=== PATIENT | male | born 1945 | race Caucasian/White ===

== ENCOUNTER → 2016-07-24 | Outpatient (CLI) | payer MEDICARE ==
[2015-03-13 11:06] VITALS: BP 114/71
[~2016-07-24] MED LIST: 0.9126SP NS; ACET325T9 PO; BUSP10TA PO; FURO-68 PO; FURO40TA4 PO; GABA-586 PO; GABA-587 PO; GABA600T2 PO; GUAI473L15 PO; HYDR28OI6 TP; IOHEXOL 300 MG/ML 75 ML VIAL. IV ONE; KEPPRA 100 MG/ML PO; LACO150T PO; LACO50TA PO; LEVO500T59 PO; LEVO75TA5 PO; MAGN400T3 PO; MENT1LOZ3 MM; METH-39 PO; NYST1000 PO; OXYC10TA PO; OXYC5CAP PO; OXYC5TAB PO; PANT40TA3 PO; PANT40TA5 PO; POTA40LI3 PO; POTA40LI4 PO; QUET25TA5 PO; SALI45SP MM; SUCR1TAB PO; VENL75CA PO; WARF4TAB7 PO
--- NOTE | 2016-07-24 12:16 | RAD ---
Exam performed: CT abdomen pelvis with contrast. History: Abnormal weight loss. Date of service: 07/24/16. Comparison: None available Technique: Contiguous helical acquisitions are obtained through the abdomen and pelvis during intravenous administration of 75 cc of Omnipaque 300. Sagittal and coronal reformatted images are obtained and reviewed. Findings: Lung bases are essentially clear. Visualized heart is normal. The liver, gallbladder, spleen and pancreas appear grossly normal. Tiny cyst in the subdiaphragmatic right hepatic lobe. Both adrenal glands and bilateral kidneys are normal in size with symmetric excretion of contrast via both kidneys. There is no hydronephrosis or nephrolithiasis. Ectatic tortuous aorta with mild aneurysmal dilatation diffuse and atheromatous calcification. Aorta measures up to 3.2 cm in maximum dimension. The small and large bowel loops are nondilated and unremarkable. Scattered stool in the colon. Appendix is not clearly seen. No inflammatory changes in the right lower quadrant. There is a large abdominal wall defect in the left posterior lateral aspect Sigmoid diverticulosis with apparent wall thickening of a long segment of sigmoid colon . A tiny 6 mm fatty attenuating nodule with microcalcification is redemonstrated. Urinary bladder is partially decompressed however normal. Prostate gland demonstrates mild calcification, seminal vesicles and rectum appear normal. No free or focal fluid collections are identified. Interrogation of bone windows demonstrates no acute bony abnormality, spondylotic changes are noted. There are extensive postoperative changes involving the thoracolumbar spine. Impression: 1. No acute intra-abdominal or pelvic process detected. 2. Diffuse colonic diverticulosis without acute diverticulitis. 3. Small infrarenal abdominal aortic aneurysm. 4. Abdominal wall defect in the left posterior lateral aspect appears similar without herniation of bowel loops. PQRS Compliance Statement: One or more of the following individualized dose reduction techniques were utilized for this examination: 1. Automated exposure control 2. Adjustment of the mA and/or kV according to patient size 3. Use of iterative reconstruction technique
== END | disposition home or self-care (01) ==
LOC: CT 10:15
PROVIDERS: ATTEND Specialist
DX: K57.30 Diverticulosis of large intestine without perforation or abscess without bleeding (principal); I71.4 Abdominal aortic aneurysm, without rupture; R63.4 Abnormal weight loss
CPT/HCPCS: 74177; Q9967

== ENCOUNTER 2016-10-10 20:01 | Emergency (ER) | payer MEDICARE ==
[~2016-10-10 20:01] MED LIST changes: -IOHEXOL 300 MG/ML 75 ML VIAL. IV ONE
[2016-10-10 22:33] LABS: BASO % 1 % (0-3); EOS % 1 % (0-3); HEMATOCRIT 35.8 % (39.0-53.0); LYMPH # 1.3 x10^3/uL (1.0-4.8); LYMPH % 21 % (24-48); MEAN CORPUSCULAR HEMOGLOBIN 31 pg (25-35); MEAN CORPUSCULAR HGB CONC 34 g/dL (31-37); MEAN CORPUSCULAR VOLUME 91 fL (79-100); MONO # 0.6 x10^3/uL (0.0-1.1); MONO % 10 % (0-9); NEUT # 4.1 x10^3uL (1.8-7.7); NEUT % 68 % (31-73); PLATELET COUNT 203 x10^3/uL (140-400); RED BLOOD COUNT 3.93 x10^6/uL (4.30-5.70); RED CELL DISTRIBUTION WIDTH 14.2 % (11.5-14.5)
[2016-10-10 22:43] LABS: BACTERIA,URINE 0 /HPF (0-FEW); BILIRUBIN,URINE NEG (NEG); CLARITY,URINE CLEAR; COLOR,URINE YELLOW; GLUCOSE,URINE NEG (NEG); NITRITE,URINE POS (NEG); RBC,URINE OCC /HPF (0-2); SQUAMOUS EPITHELIAL CELL,UR FEW /LPF; UROBILINOGEN,URINE 0.2 mg/dL (0.2 mg/dL)
[2016-10-10 22:44] LABS: ALBUMIN/GLOBULIN RATIO 0.8 (1.0-1.7); CALCIUM 8.1 mg/dL (8.5-10.1); CREATININE 0.8 mg/dL (0.7-1.3); GFR 95.3; POTASSIUM 4.2 mmol/L (3.5-5.1); TOTAL BILIRUBIN 0.3 mg/dL (0.2-1.0); TOTAL PROTEIN 6.7 g/dL (6.4-8.2)
[2016-10-10 22:48] LABS: BGAS PH 7.43 (7.35-7.46)
--- NOTE | 2016-10-10 23:26 | EKG ---
[address] [address] Test Date: 2016-10-10 Test Time: 21:26:57 Pat Name: EBER MACHADO Department: Room: Gender: M [employer] Fab[employer] Supervisor: : 1945 Requested By: RIAN GIMENEZ Order Number: [id number] Reading MD: Jevon Parrish Measurements Intervals [place] Rate: 56 P: 37 WI: 264 QRS: 36 QRSD: 82 T: 36 QT: 386 QTc: 375 Interpretive Statements SINUS RHYTHM PROLONGED WI INTERVAL Electronically Signed On 10-11-2016 8:40:25 CDT by Jevon Parrish
--- NOTE | 2016-10-11 00:01 | RAD ---
EXAM: CT HEAD WITHOUT CONTRAST. HISTORY: Altered mental status. TECHNIQUE: Computed tomography of the head was performed without intravenous contrast. COMPARISON: None. FINDINGS: There is no intracranial hemorrhage. Hypoattenuation within the periventricular white matter indicates mild chronic microangiopathic change. There is 6 mm rightward midline shift. The extra-axial space on the left is mildly prominent, but there is no clear collection or space-occupying lesion. Prominence of the lateral ventricles and hemispheric sulci indicates moderate atrophy. The visualized portion of the left maxillary sinus is opacified. There are changes of right maxillary sinus decompressive surgery. The turbinates have been resected. There is mild mucosal thickening elsewhere throughout the sinuses. There are changes of bilateral cataract surgery. The temporal bones are unremarkable. The calvarium reveals no suspicious lesions. IMPRESSION: 1. No acute intracranial findings. 2. Rightward midline shift measures 6 mm, but there is no clear space-occupying lesion or extra-axial collection. Prominence of the left extra-axial space may reflect atrophy or a small chronic subdural hygroma. Comparison with prior studies could assess chronicity. 3. Moderate atrophy. Mild chronic microangiopathic white matter change. *One or more of the following individualized dose reduction techniques were utilized for this examination: 1. Automated exposure control. 2. Adjustment of the mA and/or kV according to patient size. 3. Use of iterative reconstruction technique. Electronically signed by: Neville Rosales MD (10/10/2016 11:58 PM) [facility]
[2016-10-11 00:30] VITALS: BP 141/77
--- NOTE | 2016-10-11 05:40 | ED.ADGEN ---
Past History Past Medical History: GERD, Hypothyroid, Other Past Surgical History: Other Alcohol Use: None Drug Use: None Adult General Chief Complaint Chief Complaint Altered mental status [facility] HPI Patient is a 71-year-old male brought to the emergency department with change of mental status. Patient was last known normal was approximately 5 PM this evening. Patient's sister spoke with the patient on phone at the time and then visited him 90 minutes later. The patient was found mildly confused and appeared to be somewhat somnolent. Symptoms improved prior to ED arrival. Patient reports chronic back pain and took 1 oxycodone prior to ED arrival. He did not take any additional medications than prescribed prior to the onset of symptoms. Patient is not diabetic he denies history of hypoglycemia or seizure disorder. Prior to symptoms started, patient started bowel prep for scheduled colonoscopy tomorrow. She denies headache, change in vision, chest pain, palpitations, dizziness, lightheadedness extremity weakness or loss of sensation. Denies fever, chills, sweats. No urinary frequency urgency, dysuria, constipation or diarrhea. No other acute symptoms or complaints. History obtained from the patient and the patient's sister who is at bedside and witnessed epsidoe. Review of Systems Review of Systems ROS as per HPI, Allergies Allergies Allergies Coded Allergies Type Severity Reaction Last Updated Verified I S O L A T I O N *CONTACT* Allergy Unknown 02/24/15 Yes NKMA Allergy Unknown 02/24/15 Yes Physical Exam Physical Exam Constitutional: Well developed, well nourished, no acute distress, non-toxic appearance. HENT: Normocephalic, atraumatic, bilateral external ears normal, oropharynx moist, no oral exudates, nose normal. Eyes: PERRLA, EOMI, conjunctiva normal. Neck: Normal range of motion, no tenderness. Cardiovascular:Heart rate regular rhythm, no murmur. Lungs & Thorax: Bilateral breath sounds clear to auscultation. Abdomen: Bowel sounds normal, soft, no tenderness. Skin: Warm, dry, no erythema, no rash. Back: No tenderness. Extremities: No tenderness. Neurologic: Alert and oriented X 3, normal motor function, normal sensory function, no focal deficits noted. Psychologic: Affect normal, judgement normal, mood normal. Current Patient Data Vital Signs Vital Signs Date Time Temp Pulse Resp B/P (MAP) Pulse Ox O2 Delivery O2 Flow Rate FiO2 10/11/16 00:30 97.5 57 20 141/77 (98) 96 Room Air Lab Results Laboratory Tests Test 10/10/16 21:11 10/10/16 22:15 Blood pH 7.43 (7.35-7.46) Blood Gas PCO2 38 mmHg (35-46) Blood Gas PO2 90 mmHg (71-100) Blood Gas HCO3 25 mmol/L (21-28) Arterial Bld O2 Saturation (Calc) 97 % (92-99) FiO2 21 % White Blood Count 6.0 x10^3/uL (4.0-11.0) Red Blood Count 3.93 x10^6/uL (4.30-5.70) L Hemoglobin 12.0 g/dL (13.0-17.5) L Hematocrit 35.8 % (39.0-53.0) L Mean Corpuscular Volume 91 fL (79-100) Mean Corpuscular Hemoglobin 31 pg (25-35) Mean Corpuscular Hemoglobin Concent 34 g/dL (31-37) Red Cell Distribution Width 14.2 % (11.5-14.5) Platelet Count 203 x10^3/uL (140-400) Neutrophils (%) (Auto) 68 % (31-73) Lymphocytes (%) (Auto) 21 % (24-48) L Monocytes (%) (Auto) 10 % (0-9) H Eosinophils (%) (Auto) 1 % (0-3) Basophils (%) (Auto) 1 % (0-3) Neutrophils # (Auto) 4.1 x10^3uL (1.8-7.7) Lymphocytes # (Auto) 1.3 x10^3/uL (1.0-4.8) Monocytes # (Auto) 0.6 x10^3/uL (0.0-1.1) Eosinophils # (Auto) 0.0 x10^3/uL (0.0-0.7) Basophils # (Auto) 0.0 x10^3/uL (0.0-0.2) Urine Collection Type Unknown Urine Color Yellow Urine Clarity Clear Urine pH 7.0 Urine Specific [place] 1.010 Urine Protein Neg (NEG-TRACE) Urine Glucose (UA) Neg mg/dL (NEG) Urine Ketones (Stick) Neg mg/dL (NEG) Urine Blood Neg (NEG) Urine Nitrite Pos (NEG) Urine Bilirubin Neg (NEG) Urine Urobilinogen Dipstick 0.2 mg/dL (0.2 mg/dL) Urine Leukocyte Esterase Neg (NEG) Urine RBC Occ /HPF (0-2) Urine WBC 1-4 /HPF (0-4) Urine Squamous Epithelial Cells Few /LPF Urine Bacteria 0 /HPF (0-FEW) Sodium Level 130 mmol/L (136-145) L Potassium Level 4.2 mmol/L (3.5-5.1) Chloride Level 97 mmol/L (98-107) L Carbon Dioxide Level 26 mmol/L (21-32) Anion Gap 7 (6-14) Blood Urea Nitrogen 13 mg/dL (8-26) Creatinine 0.8 mg/dL (0.7-1.3) Estimated GFR (Cockcroft-Gault) 95.3 BUN/Creatinine Ratio 16 (6-20) Glucose Level 114 mg/dL (70-99) H Calcium Level 8.1 mg/dL (8.5-10.1) L Total Bilirubin 0.3 mg/dL (0.2-1.0) Aspartate Amino Transferase (AST) 34 U/L (15-37) Alanine Aminotransferase (ALT) 33 U/L (16-63) Alkaline Phosphatase 65 U/L (46-116) Ammonia 16 mcmol/L (11-34) Total Protein 6.7 g/dL (6.4-8.2) Albumin 3.0 g/dL (3.4-5.0) L Albumin/Globulin Ratio 0.8 (1.0-1.7) L EKG EKG [EKG: Sinus bradycardia, rate 56, no acute ST-T wave changes.] Radiology/Procedures Radiology/Procedures [CT head: No acute intracranial disease] Course & Med Decision Making Course & Med Decision Making Pertinent Labs and Imaging studies reviewed. (See chart for details) [Patient with return to baseline mental status and ED confirmed by patient's sister. Etiology of symptoms is unclear. Patient noted to be mildly hyponatremic. Patient instructed to withhold GI prep and follow-up with reevaluation prior to procedure. Return precautions reviewed.] Final Impression Final Impression [1. Altered mental status, resolved] Problems: Dragon Disclaimer Dragon Disclaimer This electronic medical record was generated, in whole or in part, using a voice recognition dictation system. RIAN GIMENEZ DO Oct 11, 2016 05:40
[2016-10-12] MEDS ORDERED: VENL37.57 PO (04:26)
[2016-10-12] MEDS ORDERED: WARF2TAB7 PO (04:26)
[2016-10-12] MEDS ORDERED: OXYC5CAP PO (04:36)
[2016-10-12] MEDS ORDERED: [UNRECOGNIZED DRUG - CODE] PO (04:36)
[2016-10-12] MEDS ORDERED: TRAZ-90 PO (04:43)
[2016-10-12] MEDS ORDERED: PREG75CA PO (04:43)
[2016-10-12] MEDS ORDERED: POTA20TA84 PO (04:43)
[2016-10-12] MEDS ORDERED: LEVE750T8 PO (04:43)
== END 2016-10-11 00:30 | disposition home or self-care (01) ==
LOC: ER 20:01
DX: R41.82 Altered mental status, unspecified (principal); K21.9 Gastro-esophageal reflux disease without esophagitis; E03.9 Hypothyroidism, unspecified; G89.29 Other chronic pain; Z91.041 Radiographic dye allergy status
CPT/HCPCS: 36415; 70450; 80053; 81001; 82140; 82803; 85027; 87040; 87086; 87186; 93005; 99285-25

== ENCOUNTER 2016-10-11 21:33 | Inpatient (IN) | payer MEDICARE ==
[~2016-10-11] VITALS: Ht 188 cm; Wt 82.4 kg
--- NOTE | 2016-10-11 22:00 | PHYS DOC ---
Past History Past Medical History: GERD, Hypothyroid, Other Past Surgical History: Other Alcohol Use: None Drug Use: None Adult General Chief Complaint Chief Complaint: ALTERED MENTAL STATUS HPI HPI Patient is a 71 year old M who presents with altered mental status. Patient was seen yesterday the emergency room for similar symptoms after starting the bowel prep for colonoscopy. Patient was discharged home last night and followed up with their PCP today. Patient saw a physician administrative assistant receptionist in the office recheck some be some blood work and discharge the patient home from the office. states that the ultimate mental status tonight has gotten worse and therefore called the family physician who wanted the patient admitted to the hospital. Patient had a hard time communicating and could not articulate what brought him here to the hospital. Patient did not know his favorite TV channel. denies any fevers. denies any other neuro deficits. Review of Systems Review of Systems ROS is limited secondary to patient's clinical status Allergies Allergies Allergies Coded Allergies Type Severity Reaction Last Updated Verified I S O L A T I O N *CONTACT* Allergy Unknown 02/24/15 Yes NKMA Allergy Unknown 02/24/15 Yes Physical Exam Physical Exam GEN.: No apparent distress. Alert and oriented x2 HEENT: Head is normocephalic, atraumatic NECK: Supple. LUNGS: CTAB. HEART: RRR, S1, S2 present. Peripheral pulses intact ABDOMEN: Soft, nontender. Positive bowel sounds. EXTREMITIES: Without any cyanosis. NEUROLOGIC: Cranial nerves II through XII are grossly intact without any focal neurological deficits PSYCHIATRIC: Confused SKIN: No ulcerations Current Patient Data Lab Results Laboratory Tests Test 10/11/16 22:05 White Blood Count 8.2 x10^3/uL Red Blood Count 4.33 x10^6/uL Hemoglobin 13.1 g/dL Hematocrit 39.6 % Mean Corpuscular Volume 91 fL Mean Corpuscular Hemoglobin 30 pg Mean Corpuscular Hemoglobin Concent 33 g/dL Red Cell Distribution Width 14.4 % Platelet Count 240 x10^3/uL Neutrophils (%) (Auto) 53 % Lymphocytes (%) (Auto) 33 % Monocytes (%) (Auto) 13 % Eosinophils (%) (Auto) 1 % Basophils (%) (Auto) 1 % Neutrophils # (Auto) 4.3 x10^3uL Lymphocytes # (Auto) 2.7 x10^3/uL Monocytes # (Auto) 1.1 x10^3/uL Eosinophils # (Auto) 0.1 x10^3/uL Basophils # (Auto) 0.1 x10^3/uL Sodium Level 135 mmol/L Potassium Level 4.2 mmol/L Chloride Level 100 mmol/L Carbon Dioxide Level 30 mmol/L Anion Gap 5 Blood Urea Nitrogen 11 mg/dL Creatinine 0.7 mg/dL Estimated GFR (Cockcroft-Gault) 111.2 BUN/Creatinine Ratio 16 Glucose Level 98 mg/dL Lactic Acid Level 0.8 mmol/L Calcium Level 8.5 mg/dL Magnesium Level 2.1 mg/dL Total Bilirubin 0.4 mg/dL Aspartate Amino Transf (AST/SGOT) 27 U/L Alanine Aminotransferase (ALT/SGPT) 30 U/L Alkaline Phosphatase 78 U/L Total Protein 7.3 g/dL Albumin 3.3 g/dL Albumin/Globulin Ratio 0.8 Lipase 87 U/L Current Medications Medications (Trade) Dose Ordered Sig/[place] Route PRN Reason Start Time Stop Time Status Last Admin Dose Admin Sodium Chloride 1,000 ml @ 1,000 mls/hr 1X ONCE IV 10/11/16 22:10 10/11/16 23:09 DC 10/11/16 22:10 Ceftriaxone Sodium 1 gm/ Sodium Chloride 50 ml @ 100 mls/hr 1X ONCE IV 10/11/16 23:45 10/12/16 00:14 UNV Azithromycin 500 mg/Sodium Chloride 250 ml @ 250 mls/hr 1X ONCE IV 10/11/16 23:45 10/12/16 00:44 UNV Ondansetron HCl (Zofran) 4 mg PRN Q4HRS PRN IV NAUSEA/VOMITING 10/11/16 23:45 10/12/16 23:44 UNV Morphine Sulfate (Morphine 4mg Syringe) 4 mg PRN Q2HR PRN IV PAIN 10/11/16 23:45 10/12/16 23:44 UNV Acetaminophen (Tylenol) 650 mg PRN Q4HRS PRN PO FEVER 10/11/16 23:45 10/12/16 23:44 UNV EKG EKG 2217: EKG shows normal sinus rhythm rate of 70 no STEMI [] Radiology/Procedures Radiology/Procedures X-ray the chest shows a right middle and lower lobe infiltrate CT scan of the head NAD[] Course & Med Decision Making Course & Med Decision Making Pertinent Labs and Imaging studies reviewed. (See chart for details) ED course: Patient was seen and examined emergency room CBC, CMP, UA, CT scan of the head, EKG, chest were ordered 2326: Will will see Dr. Estrada who wants to admit to the hospitalist 2327: Discussed CC/HP/PMH with Dr. Navarrete and recommends admit MDM: After reviewing the chart, CC/HPI/PMH, physical exam, [lab results], [ radiological results], I believe the patient has altered mental status along with a newly developed right middle lobe pneumonia requiring IV antibiotics and admission to the hospital. [] Dragon Disclaimer Dragon Disclaimer This chart was dictated in whole or in part using Voice Recognition software in a busy, high-work load, and often noisy Emergency Department environment. It may contain unintended and wholly unrecognized errors or omissions. Departure Departure: Impression: Primary Impression: Right middle lobe pneumonia Additional Impression: Altered mental status Disposition: ADMITTED INPATIENT Admitting Physician: Tosin Navarrete Condition: STABLE Referrals: CIARA SCOTT MD (PCP) Problem Qualifiers ASHKAN LLOYD DO Oct 11, 2016 22:00
[2016-10-11] MEDS ORDERED: IV NORMAL SALINE 1,000ML 1,000 ML IV ONE (22:10)
[2016-10-11 22:18] LABS: BASO # 0.1 x10^3/uL (0.0-0.2); BASO % 1 % (0-3); EOS # 0.1 x10^3/uL (0.0-0.7); EOS % 1 % (0-3); HEMATOCRIT 39.6 % (39.0-53.0); HEMOGLOBIN 13.1 g/dL (13.0-17.5); LYMPH # 2.7 x10^3/uL (1.0-4.8); LYMPH % 33 % (24-48); MEAN CORPUSCULAR HEMOGLOBIN 30 pg (25-35); MEAN CORPUSCULAR HGB CONC 33 g/dL (31-37); MEAN CORPUSCULAR VOLUME 91 fL (79-100); MONO # 1.1 x10^3/uL (0.0-1.1); MONO % 13 % (0-9); NEUT # 4.3 x10^3uL (1.8-7.7); NEUT % 53 % (31-73); PLATELET COUNT 240 x10^3/uL (140-400); RED BLOOD COUNT 4.33 x10^6/uL (4.30-5.70); RED CELL DISTRIBUTION WIDTH 14.4 % (11.5-14.5); WHITE BLOOD COUNT 8.2 x10^3/uL (4.0-11.0)
--- NOTE | 2016-10-11 22:19 | EKG ---
[address] [address] Test Date: 2016-10-11 Test Time: 22:12:07 Pat Name: EBER MACHADO Department: Room: Gender: M Elevator Repairer: : 1945 Requested By: ASHKAN LLOYD Order Number: [id number] Reading MD: Jerry Harris Measurements Intervals [place] Rate: 70 P: 34 AL: 244 QRS: 34 QRSD: 80 T: 32 QT: 356 QTc: 387 Interpretive Statements SINUS RHYTHM PROLONGED AL INTERVAL Electronically Signed On 10-14-2016 15:01:58 CDT by Jerry Harris
[2016-10-11 22:31] LABS: ALBUMIN 3.3 g/dL (3.4-5.0); ALBUMIN/GLOBULIN RATIO 0.8 (1.0-1.7); CALCIUM 8.5 mg/dL (8.5-10.1); CREATININE 0.7 mg/dL (0.7-1.3); GFR 111.2; POTASSIUM 4.2 mmol/L (3.5-5.1); TOTAL BILIRUBIN 0.4 mg/dL (0.2-1.0); TOTAL PROTEIN 7.3 g/dL (6.4-8.2)
--- NOTE | 2016-10-11 22:50 | RAD ---
EXAM: Head CT without contrast. HISTORY: Worsening mental status. TECHNIQUE: Computed tomographic images of the head were obtained without contrast. *One or more of the following individualized dose reduction techniques were utilized for this examination: 1. Automated exposure control. 2. Adjustment of the mA and/or kV according to patient size. 3. Use of iterative reconstruction technique. COMPARISON: 10/10/2016. FINDINGS: There is stable 6 mm rightward midline shift with minimal asymmetric increased extra-axial space along the left cerebral convexity. This may be due to a chronic hygroma. There is no acute or subacute hemorrhage. There is no hydrocephalus. There are subtle areas of hypodensity within the cerebral white matter, likely due to chronic small vessel disease. The visualized portions of the orbits are unremarkable. There is evidence of prior right maxillary antrostomy/uncinectomy surgery. There is ethmoid sinus because of thickening. The mastoid air cells are clear. No calvarial lesion is seen. IMPRESSION: 1. 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 There is no acute or subacute hemorrhage. 2. Scattered areas of hypodensity within the cerebral white matter, a nonspecific finding likely due to chronic small vessel disease. 3. Note is made that MRI is more sensitive for acute infarction. Electronically signed by: Rosa Santoyo MD (10/11/2016 10:46 PM) [facility]
[2016-10-11] MEDS ORDERED: ACETAMINOPHEN 325 MG TABLET PO PRN (23:45)
[2016-10-11] MEDS ORDERED: ONDANSETRON PF 4 MG/2 ML VIAL. IV PRN (23:45)
[2016-10-12] MEDS ORDERED: cefTRIAXone SODIUM 1 GM VIAL IV ONE (00:13)
[2016-10-12] MEDS ORDERED: AZITHROMYCIN 500 MG VIAL. IV ONE (00:13)
[2016-10-12] MEDS ORDERED: IV NORMAL SALINE 50ML 50 ML ONE (00:16)
[2016-10-12] MEDS ORDERED: IV NORMAL SALINE 250ML 250 ML ONE ×2 (00:16→00:33)
[2016-10-12] MEDS ORDERED: AZITHROMYCIN 500 MG in IV NORMAL SALINE 250ML 250 ML IV ONE (00:30)
[2016-10-12 01:16] VITALS: BP 138/79
[2016-10-12 03:58] LABS: BACTERIA,URINE FEW /HPF (0-FEW); BILIRUBIN,URINE NEG (NEG); CLARITY,URINE HAZY; COLOR,URINE YELLOW; GLUCOSE,URINE NEG (NEG); NITRITE,URINE POS (NEG); RBC,URINE OCC /HPF (0-2); UROBILINOGEN,URINE 0.2 mg/dL (0.2 mg/dL); WBC,URINE >40 /HPF (0-4)
[2016-10-12] MEDS ORDERED: VENL37.57 PO (04:26)
[2016-10-12] MEDS ORDERED: WARF2TAB7 PO (04:26)
[2016-10-12] MEDS: MORPHINE SULFATE 4 MG/ML DISP.SYRIN. IV PRN ×2 (04:30→12:33)
[2016-10-12] MEDS ORDERED: OXYC5CAP PO (04:36)
[2016-10-12] MEDS ORDERED: [UNRECOGNIZED DRUG - CODE] PO (04:36)
[2016-10-12] MEDS ORDERED: POTA20TA84 PO (04:43)
[2016-10-12] MEDS ORDERED: PREG75CA PO (04:43)
[2016-10-12] MEDS ORDERED: TRAZ-90 PO (04:43)
[2016-10-12] MEDS ORDERED: LEVE750T8 PO (04:43)
--- NOTE | 2016-10-12 05:44 | ACF ---
Admission Criteria Forms PNEUMONIA, COMMUNITY ACQUIRED Clinical Indications for Admission to Inpatient Care (Place 'X' for any and all applicable criteria): Admission to inpatient status for two midnights or more is indicated for ANY ONE of the following (1)(2)(3): [ ]I. Hypoxia [ ]II. Hemodynamic instability [x]III. Altered mental status that is severe or persistent [ ]IV. Dehydration that is severe or persistent. [ ]V. Bacteremia [ ]. Moderate-risk or high-risk category patients (Pneumonia Severity Index ( PSI) class IV or V, or CURB-65 score of 3 or greater). [ ]VII. Intermediate-risk category patients (e.g., PSI class III or CURB-65 score 2) who do not improve with outpatient and observation care treatment [ ]VIII. Outpatient treatment failure as indicated by 1 or more of the following(9): [ ]a) Failure to respond to antibiotic (eg, resistant organism) [ ]b) Clinically significant adverse effects from medication (eg, vomiting) [ ]c) Complications of pneumonia (eg, empyema, bacteremia) [ ]d) Significant worsening of comorbid cond necessitating inpatient care (eg, chronic heart failure) [ ]IX. Appropriate diagnostic testing and treatment unavailable in outpatient or recovery facility (eg, testing or infection control measures unavailable) [ ]X. Respiratory finding (eg. tachypnea) that do not respond to outpatient observation care treatment [ ]XI. Complicated pleural effusions (eg, emphysema, exudative, loculated) [ ]XII. Immunocompromised patients (e.g., AIDS, chronic steroid use) at moderate or high risk based on clinical evaluation. Extended stay beyond goal length of stay may be needed for (20) [ ]a) Unclear diagnosis [ ]b) Pleural disease [ ]c) Severe pneumonia or treatment failure [ ]d) Respiratory failure [ ]e) New onset hyponatremia (serum Na concentration less than 135 mEq/L(mmol/ L) [ ]f) Clinically significant comorbid illness (eg, heart failure, atrial fibrillation with rapid heart rate, alcohol withdrawal, renal insufficiency)(34)(35) [ ]g) Comorbid acute exacerbation of COPD(36) [ ]h) Concomitant diagnosis of malignancy [ ]i) Concomitant altered mental status [ ]j) Culture-identified Gram-negative or antibiotic-resistant organism (eg, Pseudomonas, methicillin-resistant Staphylococcus aureus MRSA)(30) [ ]k) Healthcare-associated pneumonia (36) The original [facility] content created by [facility] has been revised. The portions of the content which have been revised are identified through the use of italic text, and [facility] has neither reviewed nor approved the modified material. All other unmodified content is copyright [facility]. Please see references footnoted in the original [facility] edition 2015 Admission Criteria Met?: Yes QUEENIE PRYOR Oct 12, 2016 05:44
[2016-10-12 05:52] LABS: FECAL OB PT NEGATIVE (NEG)
[2016-10-12 06:00] VITALS: BP 129/80
[2016-10-12 06:06] LABS: BASO % 1 % (0-3); EOS % 1 % (0-3); HEMATOCRIT 36.8 % (39.0-53.0); HEMOGLOBIN 12.2 g/dL (13.0-17.5); LYMPH % 31 % (24-48); MEAN CORPUSCULAR HEMOGLOBIN 30 pg (25-35); MEAN CORPUSCULAR HGB CONC 33 g/dL (31-37); MEAN CORPUSCULAR VOLUME 92 fL (79-100); MONO # 0.7 x10^3/uL (0.0-1.1); MONO % 10 % (0-9); NEUT # 3.8 x10^3uL (1.8-7.7); NEUT % 58 % (31-73); PLATELET COUNT 213 x10^3/uL (140-400); RED CELL DISTRIBUTION WIDTH 14.1 % (11.5-14.5); WHITE BLOOD COUNT 6.6 x10^3/uL (4.0-11.0)
[2016-10-12 06:24] LABS: CALCIUM 8.3 mg/dL (8.5-10.1); CREATININE 0.8 mg/dL (0.7-1.3); GFR 95.3; POTASSIUM 4.6 mmol/L (3.5-5.1)
--- NOTE | 2016-10-12 08:31 | RAD ---
AP chest radiograph 10/11/2016. Clinical indication: Altered mental status. Comparison: Chest radiograph 05/14/2014 Findings: Partial visualization of lower thoracic posterior spinal fixation hardware. Hypoinflation of both lungs. There are patchy opacities in both lung bases. There is contour deformity of the right pulmonary linnea. Impression: 1. Hypoinflation of both lungs with patchy bibasilar opacities which may represent atelectasis, aspiration or infection. 2. Contour deformity of the right pulmonary linnea which may represent lymphadenopathy. Noncontrast CT chest is recommended for further characterization. These results were discussed with the emergency service Dr. Masters by telephone at 8:30 AM 10/12/2016
[2016-10-12] MEDS ORDERED: ASPIRIN ENTERIC COATED 81 MG TABLET.DR. PO SCH (09:30)
[2016-10-12 10:56] VITALS: BP 132/79
[2016-10-12 15:34] VITALS: BP 138/90
--- NOTE | 2016-10-12 15:48 | RAD ---
CT chest without contrast 10/04/2016. Indication: Contour deformity overlying the right pulmonary linnea. Comparison: Chest radiograph 10/11/2016. Technique: Multiple CT images of the chest were obtained without contrast according to standard protocol. Coronal and sagittal reformations were obtained. PQRS Compliance Statement: One or more of the following individualized dose reduction techniques were utilized for this examination: 1. Automated exposure control 2. Adjustment of the mA and/or kV according to patient size 3. Use of iterative reconstruction technique Findings: Chest: Heart size is normal without pericardial effusion. Coronary artery calcifications are noted. The thoracic aorta is normal in caliber with mild scattered calcified atheromatous disease and diffuse tortuosity of the thoracic aorta. No axillary, mediastinal or hilar lymphadenopathy. There is mild linear scarring in both lung bases. No pleural effusion, pneumothorax. There is a tiny calcified granuloma in the left upper lobe. No suspicious noncalcified nodules in the aerated portions of the lungs. There are old ununited rib fracture deformities of the posterior seventh through 10th posterior left ribs. There is 6 mm anterolisthesis of C7 on T1. There is a mild anterior superior wedge deformity T7 with no retropulsion. Partial visualization of posterior thoracic spinal fixation hardware. Limited images of the upper abdomen are significantly limited due to artifact from thoracolumbar spinal hardware. Impression: 1. No suspicious hilar lymphadenopathy or mass prominent right hilar opacity was likely due to combination of rotation and superimposition of pulmonary vessels. 2. Mild superior wedge deformity at T7, age-indeterminate, without bony retropulsion. Clinical correlation for point tenderness is recommended.
[2016-10-12] MEDS ORDERED: WARFARIN 7.5 MG TABLET. PO SCH (16:00)
[2016-10-12] MEDS: tiZANidine 4 MG TABLET. PO SCH ×2 (16:19→21:40)
--- NOTE | 2016-10-12 19:00 | HP ---
ADMIT DATE: 10/12/2016 REASON FOR ADMISSION: Altered mental status. HISTORY OF PRESENT ILLNESS: This is a 71-year-old male who had a second trip to the Emergency Department late 10/11/2016 with altered mental status. He had been undergoing a bowel prep for colonoscopy, which was MiraLax and following a liquid diet. He did continue to take his medications, which are quite extensive and include narcotics. He also was seen at physician's catering assistant office, but the had told the Emergency Room physician that he had gotten worse and she requested he be admitted to the hospital. He did stop taking his Coumadin 4 days ago as part of the bowel prep and he had been having problems with word finding and when I went in the room, he had the phone off the hook, the phone in his hand, but was not doing anything with that. PAST MEDICAL HISTORY: Extensive. Hypothyroidism, chronic low back pain, morbid obesity; however, he has lost 200 pounds for unknown reason; suspected obstructive sleep apnea, hypertension, type 2 diabetes, reflux, osteoarthritis, history of narcotic overdose with respiratory failure where he spent several months in the hospital and in rehabilitation. This was in 2014. PAST SURGICAL HISTORY: Unable to tell me. ALLERGIES: None. MEDICATIONS: Extensive. He is on a high dose of gabapentin. He is on Lyrica, oxycodone, and he did state he took these medications while undergoing the bowel prep. SOCIAL HISTORY: The patient lives in his own home. No tobacco. Sister is very supportive. He does not drink alcohol or use drugs. REVIEW OF SYSTEMS: The patient is having a very hard time his words in answering questions and basically main complaint that is not being able to concentrate, answer questions and get the words out for the answer. OBJECTIVE: VITAL SIGNS: Blood pressure 132/79, pulse 66, respirations 20, temperature 98.6. Pulse ox is 94% on room air, it was 99% on 2 liters. Height 74 inches, weight 183 pounds. GENERAL: Mild confused 71-year-old in no acute distress. He is currently holding the phone headset in his hand, but is not trying to dial the number. HEENT: Hearing is normal. His pupils were equal, round, and react to light. Extraocular muscles were intact. His nose was patent. His throat was clear. His tongue was midline. He was able to stick it out. There was no fasciculations. NECK: Supple, without adenopathy. LUNGS: Some coarse breath sounds. CARDIOVASCULAR: Regular rhythm and rate. ABDOMEN: Soft, nontender. EXTREMITIES: Without edema, but he has been off now the neurologic drugs. He is having a fine tremor of his hands now, could not really do the cranial nerves very well. He could not follow directions. I tried to do field deficits. He denied diplopia and denies any field deficits, but had a hard time concentrating on the picture I was trying to show him. LABORATORY DATA: CMP, albumin of 3.3, otherwise fairly unremarkable. Urinalysis, large amount of leukocyte esterase, greater than 40 white cells, positive nitrites. CBC: Hemoglobin 12.2, hematocrit 36.8 after hydration, white count is negative. IMAGING: Chest x-ray shows hypoinflation of both lungs with patchy bibasilar opacities which may represent atelectasis, aspiration or infection and contour deformity of the right linnea, which may represent lymphadenopathy. CT is pending. Head CT shows stable mild rightward midline shift, chronic due to a small chronic hygroma, scattered areas of white matter disease. ASSESSMENT: 1. Altered mental status, questionable etiology. 2. Polypharmacy. 3. Hypothyroidism. 4. Chronic low back pain. 5. , 200 pound weight loss, questionable etiology. 6. Reflux. 7. Abnormal chest x-rays, chest CT pending. 8. Urinary tract infection. 9. Long-term use of anticoagulants. PLAN: Treat the UTI. Hold his medications. Neurology consult. Warfarin has been held for 4 days. We will go ahead and give him his seizure medications and have Dr. Pack look at him. MITCHELL NAYLOR DO DR: BRITT/ramin JOB#: [id number] / [id number]
[2016-10-12 20:48] VITALS: BP 150/93
[2016-10-12] MEDS ORDERED: AZITHROMYCIN 250 MG TABLET. PO SCH (21:00)
[2016-10-12] MEDS: PREGABALIN 75 MG CAPSULE PO SCH (21:39)
[2016-10-12] MEDS: VENLAFAXINE XR 37.5 MG CAP.ER.24H. PO SCH (21:39)
[2016-10-12] MEDS: levETIRAcetam 500 MG TABLET PO SCH (21:40)
[2016-10-12] MEDS: POTASSIUM CHLORIDE 20 MEQ TABLET.ER. PO SCH (21:40)
[2016-10-12] MEDS: GABAPENTIN 400 MG CAPSULE. PO SCH (21:41)
[2016-10-12] MEDS: oxyCODONE IR 5 MG TABLET PO PRN (21:41)
[2016-10-12] MEDS ORDERED: IV NORMAL SALINE 500ML 500 ML ONE (21:51)
[2016-10-12 22:48] LABS: FECAL OB PT POSITIVE (NEG)
[2016-10-12 23:29] VITALS: BP 139/83
[2016-10-13 00:13] LABS: BASO % 0 % (0-3); EOS % 0 % (0-3); HEMATOCRIT 27.7 % (39.0-53.0); HEMOGLOBIN 9.2 g/dL (13.0-17.5); LYMPH # 1.3 x10^3/uL (1.0-4.8); LYMPH % 19 % (24-48); MEAN CORPUSCULAR HEMOGLOBIN 31 pg (25-35); MEAN CORPUSCULAR HGB CONC 33 g/dL (31-37); MEAN CORPUSCULAR VOLUME 93 fL (79-100); MONO # 0.7 x10^3/uL (0.0-1.1); MONO % 11 % (0-9); NEUT # 4.5 x10^3uL (1.8-7.7); NEUT % 69 % (31-73); PLATELET COUNT 159 x10^3/uL (140-400); RED CELL DISTRIBUTION WIDTH 14.4 % (11.5-14.5); WHITE BLOOD COUNT 6.5 x10^3/uL (4.0-11.0)
[2016-10-13] MEDS ORDERED: SUCRALFATE 1 GM TABLET. PO ONE (01:00)
[2016-10-13] MEDS ORDERED: PANTOPRAZOLE IV PUSH 40 MG VIAL. IVP ONE (01:00)
--- NOTE | 2016-10-13 03:30 | CONS ---
DATE OF CONSULTATION: 10/12/2016 NEUROLOGIC CONSULTATION REFERRING PHYSICIAN: Tosin Navarrete DO REASON FOR CONSULTATION: Acute mental status changes. HISTORY OF PRESENT ILLNESS: This is a 71-year-old right-handed male who was admitted through Emergency Room after he presented with 2-day history of acute mental status changes. According to the patient's sister, the patient was drinking preparation for colonoscopy on Saturday. On that night, his mental status has changed. He became confused, disoriented and difficulty to talk or find words or complete his sentences. He appears to be very weak and disoriented. He was brought to Emergency Room and was discharged home and recommended to follow up with his primary care physicians. Next morning, he was seen in his primary care physician's office and he was discharged home. Questions he was sent home; however, his mental status continued to deteriorate, and his called his primary care physicians who recommended the patient to be admitted for further evaluation. The patient used to take Coumadin for deep venous thrombosis he had before, but he stopped taking the medicine, but he stopped committing 4 days prior to colonoscopy. He has had difficulty walking in the past and he uses a walker, then a wheelchair for ambulation. He has not had any head injuries or falls. Initial enhanced head CT scan performed yesterday revealed small chronic hygroma on the left cerebral convexity, but there is no acute or subacute hemorrhage. Findings also of chronic small vessel ischemic changes were noted. The patient never had a history of stroke in the past. PAST MEDICAL HISTORY: Significant for peripheral neuropathy in the lower extremities, chronic lower back pain, osteoarthritis, degenerative disk disease, hypothyroidism, depressions, peptic ulcer, GERD, diverticulitis, sleep apnea, and hypertension. SOCIAL HISTORY: There is no history of smoking, alcohol drinking, or illicit drug use. FAMILY HISTORY: Sister with myasthenia gravis. Father had hypertension. Mother had cardiac disease. CURRENT HOME MEDICATIONS: Pantoprazole 40 mg daily, levothyroxine 37.5 mg daily, Effexor XR 75 mg at bedtime, potassium 40 mEq b.i.d., levetiracetam (trending of Keppra) 750 mg b.i.d., history of seizure, erythromycin 500 mg at bedtime, warfarin 7.5 mg daily, tizanidine 2 mg t.i.d. ALLERGIES: No known drug allergies. REVIEW OF SYSTEMS: Acute mental status changes. The patient is confused, disoriented. He has difficulty speaking or finding words, increased urinary frequency, and not obtainable. The patient is not able to provide any information. PHYSICAL EXAMINATION: GENERAL: Well-developed, well-nourished white male, not in acute distress. He weighs 183 pounds. VITAL SIGNS: Blood pressure 138/90, respiratory rate 20, pulse 75 and regular, temperature 98.7, oxygen saturation is 94% on room air. HEENT: Normocephalic, atraumatic, otherwise unremarkable. NECK: Supple. Negative for carotid bruit, lymphadenopathy, JVD or thyromegaly. LUNGS: Clear to A and P. CARDIOVASCULAR: Regular rate and rhythm, normal S1, S2. ABDOMEN: Soft. Bowel sounds positive. EXTREMITIES: Negative for cyanosis, clubbing or pitting edema, but peripheral pulses are weak. NEUROLOGIC: MENTAL STATUS: The patient is awake. He hardly follows 1 step commands. He did not answer any questions or communicate during this interview. Memory, judgment, and abstract thinkings are difficult to evaluate at this time. CRANIAL NERVES: The pupils are reactive to light and accommodation. The extraocular movements are slowed. There is no nystagmus. There is no facial motor or sensory deficit. Hearing appears to be intact. The palate is elevated symmetrically. Sternocleidomastoid muscle is difficult to evaluate as the patient was not cooperative with the exam. The patient does not protrude his tongue or shrugs his shoulder in respond to commands. MOTOR EXAMINATION: No focal muscle bulk was seen. The tone is increased in the right lower extremity. Strength, the patient is not coherent, cooperative with the manual muscle examination. SENSORY EXAMINATION: The patient was his upper and lower extremities to noxious stimuli and less responsive to noxious stimuli noted on the right lower extremity. Deep tendon reflexes were hypoactive with absent Achilles responses. Right foot has been deviated externally, but this has been like this for a long time. Gait not tested. LABORATORY DATA: CBC revealed white blood cells of 6.6, hemoglobin 12.2, hematocrit 36.8, platelet count 215,000. Chemistry revealed sodium of 139, potassium 4.6, chloride 103, CO2 32, BUN 10, creatinine 0.8, glucose 106, and calcium 8.3. PT is 10.4 and INR 1. Urinalysis revealed large urine leukocyte esterase with white blood cells of more than 40 along with few bacteria. DIAGNOSTIC DATA: Head nonenhanced head CT scan as described above in the history of present illness. Chest x-ray revealed hyperinflation of both lungs with patchy basilar opacities, which may represent atelectasis, aspiration or infection. IMPRESSION: 1. Acute encephalopathy, urinary infection may have contributed to the current symptoms; however, a new ischemic event could not be ruled out. 2. Multiple medical problems including hypertension, arthritis, osteoarthritis, hypothyroidism, depressions, gastroesophageal reflux disease, sleep apnea, diverticulitis, peptic ulcer disease, and deep venous thrombosis in the lower extremities. RECOMMENDATION: 1. Treat the underlying urinary tract infections. 2. We will repeat head CT scan tomorrow morning. 3. Continue with current management initiated by Dr. Navarrete. 4. The patient will resume his medications including Coumadin. M Crystal ARORA MD DR: CONSTANCE/ramin JOB#: [id number] / [id number]
[2016-10-13] MEDS: GABAPENTIN 400 MG CAPSULE. PO SCH ×3 (06:05→21:18)
[2016-10-13] MEDS: oxyCODONE IR 5 MG TABLET PO PRN (06:07)
[2016-10-13 06:13] LABS: BASO % 0 % (0-3); EOS % 0 % (0-3); HEMATOCRIT 34.5 % (39.0-53.0); HEMOGLOBIN 11.7 g/dL (13.0-17.5); LYMPH % 24 % (24-48); MEAN CORPUSCULAR HEMOGLOBIN 31 pg (25-35); MEAN CORPUSCULAR HGB CONC 34 g/dL (31-37); MEAN CORPUSCULAR VOLUME 91 fL (79-100); MONO # 1.3 x10^3/uL (0.0-1.1); MONO % 15 % (0-9); NEUT # 5.2 x10^3uL (1.8-7.7); NEUT % 61 % (31-73); PLATELET COUNT 218 x10^3/uL (140-400); RED CELL DISTRIBUTION WIDTH 14.1 % (11.5-14.5); WHITE BLOOD COUNT 8.6 x10^3/uL (4.0-11.0)
[2016-10-13 06:14] VITALS: BP 117/72
[2016-10-13 06:19] LABS: ALBUMIN 2.9 g/dL (3.4-5.0); ALBUMIN/GLOBULIN RATIO 0.8 (1.0-1.7); CALCIUM 8.4 mg/dL (8.5-10.1); CREATININE 0.7 mg/dL (0.7-1.3); GFR 111.2; POTASSIUM 3.9 mmol/L (3.5-5.1); TOTAL BILIRUBIN 0.3 mg/dL (0.2-1.0); TOTAL PROTEIN 6.4 g/dL (6.4-8.2)
[2016-10-13] MEDS: PREGABALIN 75 MG CAPSULE PO SCH (08:49)
[2016-10-13] MEDS: LEVOTHYROXINE 75 MCG TABLET PO SCH (08:49)
[2016-10-13] MEDS: levETIRAcetam 500 MG TABLET PO SCH ×2 (08:50→21:18)
[2016-10-13] MEDS: PANTOPRAZOLE 40 MG TABLET. PO SCH (08:50)
[2016-10-13] MEDS: tiZANidine 4 MG TABLET. PO SCH ×3 (08:50→21:18)
[2016-10-13] MEDS: POTASSIUM CHLORIDE 20 MEQ TABLET.ER. PO SCH ×2 (08:50→21:17)
[2016-10-13] MEDS ORDERED: VENLAFAXINE XR 37.5 MG CAP.ER.24H. PO SCH (09:00)
[2016-10-13 11:04] VITALS: BP 121/70
[2016-10-13 15:12] VITALS: BP 128/75
--- NOTE | 2016-10-13 18:59 | PN ---
DATE: 10/13/2016 PROBLEMS: 1. Altered mental status. 2. Polypharmacy. 3. Chronic pain. 4. Hypothyroidism. 5. Chronic low back pain. 6. 200 pound weight loss, questionable etiology. 7. Reflux. 8. Negative CT of the chest per PE. 9. UTI. 10. Long-term use of anticoagulants. 11. Heme positive stool. 12. Mild normochromic normocytic anemia. 13. Mild protein-calorie malnutrition. SUBJECTIVE: A 71-year-old male admitted for altered mental status. He had been undergoing a stool bowel prep with MiraLax and had been on restricted diet of clear liquids, but he continued to take all his medications and he became quite confused and unable to get his words out. His medicines were held for 24 hours. Last night, he became much more lucid and speaking in sentences and asking for his medications back including his pain medication. He stated he takes three 5 mg oxycodones 3 times a day; however, this is not true. I will verify with Dr. Jennings. He only takes 5 mg at a time. This morning, he is somewhere between; totally unable to elucidate what he needs and his baseline. He is able to talk a little bit more, but he is still quite confused. He did have several of his medications back. He also has had one Heme-positive stool. He states he has been on antibiotic in the last couple of months. OBJECTIVE: VITAL SIGNS: Blood pressure 117/72, temp 99.5, pulse 79, and pulse ox 94% on room air and also on 2 liters. GENERAL: Color is somewhat pale. HEENT: His eyes are clear. Nose patent. Throat clear. Tongue was midline. NECK: Supple. LUNGS: Clear to auscultation. CARDIOVASCULAR: Regular rhythm and rate. ABDOMEN: Soft and nontender. EXTREMITIES: Without edema. NEUROLOGICAL EXAM: Neurologically, word finding is still difficult. Thought process is still confused. He is very uncomfortable in the bed and requesting a new bed. He is moving all of his extremities certainly better than yesterday. He becomes very tremulous in talking, but then can be completely without tremors. He denies visual problems. He can identify fingers in the central field. Cranial nerves appeared to be intact. LABORATORY DATA: His urine culture is positive for gram-negative rods. CBC, normal white count. PLAN: Continue ceftriaxone until culture comes back. I have not reconciled all of his medications. Watch for oversedation and we will go ahead and hold the Coumadin again. He only got 1 dose and had held and then had a positive stool, so we will keep eye on stool situation. Cultures were sent. MITCHELL NAYLOR DO DR: BRITT/ramin JOB#: [id number] / [id number]
[2016-10-13 20:24] VITALS: BP 123/77
[2016-10-13] MEDS: VENLAFAXINE XR 37.5 MG CAP.ER.24H. PO SCH (21:18)
--- NOTE | 2016-10-13 21:27 | PDOC ---
Exam Alan Demential Exam: Alan Note: Please also refer to the separate dictated note~for this date of service dictated separately.~Patient seen individually. Discussed the patient with Nursing staff reviewed the chart.~Reviewed interim history and current functioning. Reviewed vital signs,~Labs/ Radiology~and current medications noted below. Continue current treatment with the changes noted in the dictated addendum note Assessment: Vital Signs: Vital Signs Date Time Temp Pulse Resp B/P (MAP) Pulse Ox O2 Delivery O2 Flow Rate FiO2 10/13/16 20:24 99.4 83 18 123/77 (92) 96 Room Air 10/13/16 08:30 2.0 I&O Intake and Output 10/13/16 07:00 Intake Total 990 ml Output Total 900 ml Balance 90 ml Intake Oral 990 ml IV Total 0 ml Output Urine Total 900 ml # Voids 8 # Bowel Movements 5 Labs: Laboratory Tests Test 10/12/16 22:15 10/12/16 23:58 10/13/16 05:57 Stool Occult Blood Positive (NEG) Clostridium difficile Toxin (PCR) Positive (Negative) H White Blood Count 6.5 x10^3/uL (4.0-11.0) 8.6 x10^3/uL (4.0-11.0) Red Blood Count 3.00 x10^6/uL (4.30-5.70) L 3.80 x10^6/uL (4.30-5.70) L Hemoglobin 9.2 g/dL (13.0-17.5) L 11.7 g/dL (13.0-17.5) L Hematocrit 27.7 % (39.0-53.0) L 34.5 % (39.0-53.0) L Mean Corpuscular Volume 93 fL (79-100) 91 fL (79-100) Mean Corpuscular Hemoglobin 31 pg (25-35) 31 pg (25-35) Mean Corpuscular Hemoglobin Concent 33 g/dL (31-37) 34 g/dL (31-37) Red Cell Distribution Width 14.4 % (11.5-14.5) 14.1 % (11.5-14.5) Platelet Count 159 x10^3/uL (140-400) 218 x10^3/uL (140-400) Neutrophils (%) (Auto) 69 % (31-73) 61 % (31-73) Lymphocytes (%) (Auto) 19 % (24-48) L 24 % (24-48) Monocytes (%) (Auto) 11 % (0-9) H 15 % (0-9) H Eosinophils (%) (Auto) 0 % (0-3) 0 % (0-3) Basophils (%) (Auto) 0 % (0-3) 0 % (0-3) Neutrophils # (Auto) 4.5 x10^3uL (1.8-7.7) 5.2 x10^3uL (1.8-7.7) Lymphocytes # (Auto) 1.3 x10^3/uL (1.0-4.8) 2.0 x10^3/uL (1.0-4.8) Monocytes # (Auto) 0.7 x10^3/uL (0.0-1.1) 1.3 x10^3/uL (0.0-1.1) H Eosinophils # (Auto) 0.0 x10^3/uL (0.0-0.7) 0.0 x10^3/uL (0.0-0.7) Basophils # (Auto) 0.0 x10^3/uL (0.0-0.2) 0.0 x10^3/uL (0.0-0.2) Sodium Level 137 mmol/L (136-145) Potassium Level 3.9 mmol/L (3.5-5.1) Chloride Level 101 mmol/L (98-107) Carbon Dioxide Level 30 mmol/L (21-32) Anion Gap 6 (6-14) Blood Urea Nitrogen 11 mg/dL (8-26) Creatinine 0.7 mg/dL (0.7-1.3) Estimated GFR (Cockcroft-Gault) 111.2 BUN/Creatinine Ratio 16 (6-20) Glucose Level 115 mg/dL (70-99) H Calcium Level 8.4 mg/dL (8.5-10.1) L Total Bilirubin 0.3 mg/dL (0.2-1.0) Aspartate Amino Transferase (AST) 41 U/L (15-37) H Alanine Aminotransferase (ALT) 51 U/L (16-63) Alkaline Phosphatase 64 U/L (46-116) Total Protein 6.4 g/dL (6.4-8.2) Albumin 2.9 g/dL (3.4-5.0) L Albumin/Globulin Ratio 0.8 (1.0-1.7) L Current Medications: Meds: Current Medications Sodium Chloride 1,000 ml @ 1,000 mls/hr 1X ONCE IV Last administered on 22:10; Start 10/11/16 at 22:10; Stop 10/11/16 at 23:09; Status DC Ceftriaxone Sodium 1 gm/ Sodium Chloride 50 ml @ 100 mls/hr 1X ONCE IV Last administered on 10/12/16 00:30; Start 10/12/16 at 00:30; Stop 10/12/16 at 00:59 ; Status DC Azithromycin 500 mg/Sodium Chloride 250 ml @ 250 mls/hr 1X ONCE IV Last administered on 10/12/16 00:30; Start 10/12/16 at 00:30; Stop 10/12/16 at 01:29 ; Status DC Ondansetron HCl (Zofran) 4 mg PRN Q4HRS PRN IV NAUSEA/VOMITING; Start 10/11/16 at 23:45; Stop 10/12/16 at 23:44; Status DC Morphine Sulfate (Morphine 4mg Syringe) 4 mg PRN Q2HR PRN IV PAIN Last administered on 10/12/16 12:33; Start 10/11/16 at 23:45; Stop 10/12/16 at 20:18 ; Status DC Acetaminophen (Tylenol) 650 mg PRN Q4HRS PRN PO FEVER Last administered on 10/12 01:25; Start 10/11/16 at 23:45; Stop 10/12/16 at 23:44; Status DC Azithromycin (Zithromax) 500 mg STK-MED ONCE IV ; Start 10/12/16 at 00:13; Stop 10/12/16 at 00:14; Status DC Ceftriaxone Sodium (Rocephin) 1 gm STK-MED ONCE IV ; Start 10/12/16 at 00:13; Stop 10/12/16 at 00:14; Status DC Sodium Chloride 250 ml @ As Directed STK-MED ONCE .ROUTE ; Start 10/12/16 at 00 :16; Stop 10/12/16 at 00:17; Status DC Sodium Chloride 50 ml @ As Directed STK-MED ONCE .ROUTE ; Start 10/12/16 at 00: 16; Stop 10/12/16 at 00:17; Status DC Sodium Chloride 250 ml @ As Directed STK-MED ONCE .ROUTE ; Start 10/12/16 at 00 :33; Stop 10/12/16 at 00:34; Status DC Azithromycin (Zithromax) 500 mg HS PO Last administered on 10/12/16 21:39; Start 10/12/16 at 21:00; Stop 10/13/16 at 07:53; Status DC Ceftriaxone Sodium 1 gm/ Sodium Chloride 50 ml @ 100 mls/hr Q24H IV Last administered on 10/13/16 21:17; Start 10/12/16 at 21:00 Aspirin (Aspirin Enteric Coated) 81 mg DAILYWBKFT PO Last administered on 09:51; Start 10/12/16 at 09:30; Stop 10/12/16 at 18:55; Status DC Levothyroxine Sodium (Synthroid) 37.5 mcg DAILYAC PO Last administered on 08:49; Start 10/13/16 at 07:30 Pantoprazole Sodium (Protonix) 40 mg DAILYAC PO Last administered on 10/13/16 08:50; Start 10/13/16 at 07:30 Warfarin Sodium (Coumadin) 7.5 mg DAILY16 PO Last administered on 10/12/16 16: 19; Start 10/12/16 at 16:00; Stop 10/13/16 at 08:31; Status DC Levetiracetam (Keppra) 750 mg BID PO Last administered on 10/13/16 21:18; Start 10/12/16 at 21:00 Potassium Chloride (Klor-Con) 40 meq BID PO Last administered on 10/13/16 21: 17; Start 10/12/16 at 21:00 Tizanidine HCl (Zanaflex) 2 mg TID PO Last administered on 10/13/16 21:18; Start 10/12/16 at 16:00 Venlafaxine HCl (Effexor Xr) 75 mg DAILY PO ; Start 10/13/16 at 09:00; Stop at 09:00; Status DC Venlafaxine HCl (Effexor Xr) 75 mg QHS PO Last administered on 10/13/16 21:18 ; Start 10/12/16 at 21:00 Warfarin Sodium (Coumadin Per Physician) 1 each PRN DAILY PRN MC SEE COMMENTS; Start 10/12/16 at 16:15 Pregabalin (Lyrica) 75 mg TID PO Last administered on 10/13/16 08:49; Start at 21:30; Status Future Hold Gabapentin (Neurontin) 1,200 mg Q8HRS PO Last administered on 10/13/16 21:18; Start 10/12/16 at 22:00 Oxycodone HCl (Roxicodone) 5 mg PRN Q6HRS PRN PO PAIN Last administered on 10/13 06:07; Start 10/12/16 at 21:30 Sodium Chloride 500 ml @ As Directed STK-MED ONCE .ROUTE Last administered on 10/12/16 21:51; Start 10/12/16 at 21:51; Stop 10/12/16 at 21:52; Status DC Sucralfate (Carafate) 1 gm 1X ONCE PO Last administered on 10/13/16 01:52; Start 10/13/16 at 01:00; Stop 10/13/16 at 01:01; Status DC Pantoprazole Sodium (Protonix Vial) 40 mg 1X ONCE IVP Last administered on 01:52; Start 10/13/16 at 01:00; Stop 10/13/16 at 01:01; Status DC Active Scripts Active Reported Trazodone Hcl 100 Mg Tablet 100-200 Mg PO HS PRN LAST DOSE GIVEN: DATE: TIME: NEXT DOSE DUE: DATE: TIME: K-Tab ER (Potassium Chloride) 20 Meq Tablet.er 40 Meq PO BID LAST DOSE GIVEN: DATE: TIME: NEXT DOSE DUE: DATE: TIME: Levetiracetam 750 Mg Tablet 750 Mg PO BID LAST DOSE GIVEN: DATE: TIME: NEXT DOSE DUE: DATE: TIME: Lyrica (Pregabalin) 75 Mg Capsule 75 Mg PO TID LAST DOSE GIVEN: DATE: TIME: NEXT DOSE DUE: DATE: TIME: Oxycodone Hcl 5 Mg Capsule 5-10 Mg PO PRN Q6HRS PRN LAST DOSE GIVEN: DATE: TIME: NEXT DOSE DUE: DATE: TIME: Tizanidine HCl 2 Mg Tablet 2 Mg PO TID LAST DOSE GIVEN: DATE: TIME: NEXT DOSE DUE: DATE: TIME: Venlafaxine Hcl Er (Venlafaxine Hcl) 37.5 Mg Cap.er.24h 37.5 Mg PO DAILY LAST DOSE GIVEN: DATE: TIME: NEXT DOSE DUE: DATE: TIME: Warfarin Sodium 2 Mg Tablet 7.5 Mg PO DAILY16 LAST DOSE GIVEN: DATE: TIME: NEXT DOSE DUE: DATE: TIME: Effexor Xr (Venlafaxine Hcl) 75 Mg Cap.er.24h 75 Mg PO HS LAST DOSE GIVEN: DATE: TIME: NEXT DOSE DUE: DATE: TIME: Seroquel (Quetiapine Fumarate) 25 Mg Tablet 12.5 Mg PO BID LAST DOSE GIVEN: DATE: TIME: NEXT DOSE DUE: DATE: TIME: Pantoprazole Sodium 40 Mg Tablet.dr 40 Mg PO DAILY LAST DOSE GIVEN: DATE: TIME: NEXT DOSE DUE: DATE: TIME: Buspirone Hcl 10 Mg Tablet 10 Mg PO QID LAST DOSE GIVEN: DATE: TIME: NEXT DOSE DUE: DATE: TIME: Gabapentin 600 Mg Tablet 1,200 Mg PO Q8HRS LAST DOSE GIVEN: DATE: TIME: NEXT DOSE DUE: DATE: TIME: Nasal Mist (0.9 % Sodium Chloride) 126 Ml Cameron 1-2 Spr NS PRN BID PRN LAST DOSE GIVEN: DATE: TIME: NEXT DOSE DUE: DATE: TIME: Nystatin 100,000 Unit/1 Ml Oral.susp 5 Ml PO QIDPRN PRN LAST DOSE GIVEN: DATE: TIME: NEXT DOSE DUE: DATE: TIME: Levothyroxine Sodium 75 Mcg Tablet 37.5 Mcg PO DAILYAC LAST DOSE GIVEN: DATE: TIME: NEXT DOSE DUE: DATE: TIME: Tylenol (Acetaminophen) 325 Mg Tablet 650 Mg PO Q6HRS PRN LAST DOSE GIVEN: DATE: TIME: NEXT DOSE DUE: DATE: TIME: Diagnosis: Problems: (1) Major depressive disorder, recurrent episode (2) Anxiety disorder (3) Psychosis, atypical SHADI CHAVEZ MD Oct 13, 2016 21:27
--- NOTE | 2016-10-13 22:57 | PN ---
DATE: SUBJECTIVE: The patient denies any new medical or neurological complaints. He was found to have a positive guaiac in the stool; therefore, Coumadin has been on hold. The patient resumed taking his medications. He is more awake and cooperative. He denies headaches, visual disturbances, nausea, vomiting, chest pain, shortness of breath, or palpitation. OBJECTIVE: GENERAL: Well-developed, well-nourished white male, not in acute distress. VITAL SIGNS: Blood pressure 123/77, respiratory rate 18, pulse is 83 and regular, temperature 99.4, oxygen saturation is 96% on room air. HEENT: Normocephalic, atraumatic, otherwise unremarkable. NECK: Supple. Negative for carotid bruit, lymphadenopathy, or thyromegaly. LUNGS: Clear to A and P. CARDIOVASCULAR: Regular rate and rhythm, normal S1, S2. There is no S3, S4, or murmur. ABDOMEN: Soft. Bowel sounds positive. EXTREMITIES: Negative for cyanosis, clubbing, or pitting edema. NEUROLOGICAL: Mental Status: The patient is alert and oriented x 3. Speech is fluent. There is no language dysfunction. The patient recalls 2/3 immediately and 1/3 after 1 and 3 minutes. Judgment and abstract thinking are fair. The patient denies hallucination or delusion. The patient follows commands and more talkative. Cranial nerves: Visual tan are full. The pupils are reactive to light and accommodation. The extraocular movements are intact. There is no nystagmus. There is no facial, motor, or sensory deficit. The rest of the cranial nerves are intact. Motor Examination: No focal muscle bulk was seen. The tone is normal. The strength is 4/5 throughout. Sensory examination revealed normal pinprick, light touch, vibratory, and position senses. Deep tendon reflexes were symmetric and hypoactive with absent Achilles responses. Gait not tested. LABORATORY DATA: CBC revealed white blood cells of 8600, hemoglobin 11.7, hematocrit 34.5, platelet count 218,000. Chemistry revealed sodium of 137, potassium 3.9, chloride 101, CO2 of 30. BUN 11, creatinine 0.7, glucose 115, and calcium 8.4. IMPRESSION: 1. Acute encephalopathy, probably secondary to underlying urinary tract infections. The patient's mental status has significantly improved from yesterday. He is more talkative and his comprehension is intact today. 2. Urinary tract infection. 3. Multiple medical problems include chronic low back pain, hypothyroidism, depression, anxiety, gastroesophageal reflux disease, obstructive sleep apnea, and positive guaiac in the stool. RECOMMENDATIONS: 1. We will continue with current management initiated by Dr. Navarrete. 2. Await excessive sedation. 3. Physical therapy as tolerated. The patient used to use a walker, but recently he is more depended on wheelchair for ambulation. M Crystal ARORA MD DR: CONSTANCE/ramin JOB#: [id number] / [id number]
[2016-10-13 23:08] VITALS: BP 137/80
--- NOTE | 2016-10-13 23:28 | CONS ---
DATE OF CONSULTATION: 10/13/2016 PSYCHIATRIC CONSULTATION/EVALUATION This notes covers elements not covered in my initial note 10/13/2016. IDENTIFYING DATA: The patient is a 71-year-old male seen in bed [facility] on [facility] for a psychiatric consultation requested by Dr. Navarrete on account of the patient's acute mental status changes. The patient was seen individually in his room, discussed with nursing staff, reviewed the chart. I met with the patient's sister to gather historical information and also with the patient's nephew. CHIEF COMPLAINT: "I am okay. I have been treated for depression. My memory is okay. I sometimes say things that are not true." HISTORY OF PRESENT ILLNESS: The patient was admitted through the Emergency Room with a 2-day history of acute mental status changes. According to the sister, the patient was getting the preparation for colonoscopy. That evening his mental status seemed to change. He is confused, disoriented, difficulty finding words. He presented to the ER, was sent home and then went to his primary care physician returned home, then mental status seemed to worsen. 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 There is also chronic small vessel ischemic disease. No history of CVA in the past. The patient has been treated for depression in the past, but I did not send him by Dr. Charlie Mari in [place], [place] and those records will be requested. No clear history of bipolar disorder. PAST PSYCHIATRIC HISTORY: As noted above. PAST MEDICAL HISTORY: ____ peripheral neuropathy, chronic low back pain, osteoarthritis, degenerative disk disease, hypothyroidism, peptic ulcer disease, GERD, diverticulitis, sleep apnea, and hypertension. CURRENT PSYCHOTROPICS: Effexor XR 75 mg a day. ALLERGIES: Negative. FAMILY HISTORY: Noncontributory for psychiatric disorder, hypertension and father cardiac disease and mother, sister with myasthenia gravis. SOCIAL HISTORY: The patient lives at home by himself. His sister helps with his grocery shopping, cooking, etc. No alcohol or drug abuse history. MENTAL STATUS EXAMINATION: The patient is seen in his room. He is well oriented. He knew it was 10/13/2016. He made it a point to emphasize that some of his word finding problems and other difficulties were because he was "faking it." Nursing staff have noted that at times he is able to talk and not talk at other times, and was explaining that he did that because he did not get the TV channel on the television as he requested the previous night. Nursing staff have noticed some tremors at times. Speech is coherent, abstraction fair, computation somewhat impaired, language function intact, attention span short. Mood and affect somewhat labile, anxious at times. No clear psychotic symptoms, suicidal, or homicidal ideation. LABORATORY DATA: Reviewed. IMPRESSION: History of major depressive disorder with psychotic features in partial remission; anxiety disorder, unspecified; psychotic disorder, unspecified, rule out bipolar 1 disorder mixed versus psychotic features. Rest diagnoses as above. PLAN: No change from a psychiatric standpoint. Continue Effexor XR 75 mg a day. I will wait for the conclusion of the Neurology workup including MRI and possibly EEG and if all of this is unremarkable and symptoms persist, we may consider treatment on atypical antipsychotics. We will request records from the [facility] and Dr. Charlie Mari in [place]. Dr. Navarrete, thank you for the opportunity to participate in your patient's care. We will follow with you. MAN Erin CHAVEZ MD DR: YOSELYN/ramin JOB#: [id number] / [id number]
[2016-10-14 05:35] VITALS: BP 135/84
[2016-10-14] MEDS: GABAPENTIN 400 MG CAPSULE. PO SCH ×3 (06:00→21:47)
[2016-10-14 07:34] LABS: BASO % 0 % (0-3); EOS % 0 % (0-3); HEMATOCRIT 36.5 % (39.0-53.0); HEMOGLOBIN 12.3 g/dL (13.0-17.5); LYMPH # 1.9 x10^3/uL (1.0-4.8); LYMPH % 18 % (24-48); MEAN CORPUSCULAR HEMOGLOBIN 31 pg (25-35); MEAN CORPUSCULAR HGB CONC 34 g/dL (31-37); MEAN CORPUSCULAR VOLUME 92 fL (79-100); MONO % 10 % (0-9); NEUT # 7.6 x10^3uL (1.8-7.7); NEUT % 72 % (31-73); PLATELET COUNT 222 x10^3/uL (140-400); RED BLOOD COUNT 3.98 x10^6/uL (4.30-5.70); RED CELL DISTRIBUTION WIDTH 14.3 % (11.5-14.5); WHITE BLOOD COUNT 10.6 x10^3/uL (4.0-11.0)
[2016-10-14 07:40] LABS: CALCIUM 8.2 mg/dL (8.5-10.1); CREATININE 0.7 mg/dL (0.7-1.3); GFR 111.2; POTASSIUM 3.8 mmol/L (3.5-5.1)
[2016-10-14] MEDS: LEVOTHYROXINE 75 MCG TABLET PO SCH (07:57)
[2016-10-14] MEDS: levETIRAcetam 500 MG TABLET PO SCH ×2 (07:57→21:47)
[2016-10-14] MEDS: tiZANidine 4 MG TABLET. PO SCH ×3 (07:57→21:48)
[2016-10-14] MEDS: POTASSIUM CHLORIDE 20 MEQ TABLET.ER. PO SCH ×2 (07:58→21:47)
[2016-10-14] MEDS: PANTOPRAZOLE 40 MG TABLET. PO SCH (07:58)
[2016-10-14 08:33] LABS: % BANDS 4 % (0-9); % BASOS 1 % (0-3); % LYMPHS 19 % (24-48); % MONOS 10 % (0-10); % SEGS 66 % (35-66); PLT ESTIMATE ADEQUATE (ADEQUATE)
[2016-10-14 08:34] LABS: TOXIC GRANULATION SLIGHT
[2016-10-14] MEDS: metroNIDAZOLE 500 MG TABLET PO SCH ×3 (09:59→21:47)
[2016-10-14] MEDS ORDERED: IV NORMAL SALINE 500ML 500 ML IV ONE (11:20)
[2016-10-14 11:27] VITALS: BP 138/72
[2016-10-14] MEDS: IV NORMAL SALINE 1,000ML 1,000 ML IV SCH ×2 (11:48→21:46)
[2016-10-14] MEDS: oxyCODONE IR 5 MG TABLET PO PRN ×2 (12:24→21:48)
[2016-10-14 13:01] LABS: BACTERIA,URINE FEW /HPF (0-FEW); BILIRUBIN,URINE NEG (NEG); CLARITY,URINE HAZY; COLOR,URINE YELLOW; GLUCOSE,URINE NEG (NEG); NITRITE,URINE NEG (NEG); SQUAMOUS EPITHELIAL CELL,UR FEW /LPF; UROBILINOGEN,URINE 0.2 mg/dL (0.2 mg/dL)
--- NOTE | 2016-10-14 14:20 | PDOC ---
SUBJECTIVE: Still having loose stools. Is going in his brief and not asking to get up to go to the commode. He does not want to get out of bed. He had a full sentence conversation with his son and his nurse but changed his behavior whrn I went in the room and started shaking and not getting his words out. Again he told the nurses he calls around to find out what channel the hospitals have and then chooses the hospital that has TCM channel. Nurses report a little tachcardic on standing and may be getting a little dehydrated from all the stools, PO intake is excellent. OBJECTIVE: Problems: Problems Medical Problems: (1) Altered mental status Status: Acute Status: Acute 1. Altered mental status. 2. Polypharmacy. 3. Chronic pain. 4. Hypothyroidism. 5. Chronic low back pain. 6. 200 pound weight loss, questionable etiology. 7. Reflux. 8. Negative CT of the chest per PE. 9. UTI. 10. Long-term use of anticoagulants. 11. Heme positive stool. 12. Mild normochromic normocytic anemia. 13. Mild protein-calorie malnutrition. 14. History of major depressive disorder with psychotic features in partial remission; 15.anxiety disorder, unspecified; 16. psychotic disorder, unspecified, rule out bipolar 1 disorder mixed versus psychotic features. 17 Diarhea with positive C. Diff 18. Dehydration Sitting in chair. At first was calm and then became quite anxious and started shaking all over, tongue moist, throat clear, lungs clear. CVRRR, mildy tachycardic, ext without edema Mental status: listened to conversation between the patient and his nurse. He was speaking in full sentences and wanted to be cleaned up in bed. He is stooling in his brief rather than calling to go to the commode. When I came in he started tremendous shaking and having difficulty getting his words out. Noted his lunch tray completly eaten. Pneumonia ruled out on the CT. Vital Signs: tachycardic when standing Vital Signs Date Time Temp Pulse Resp B/P (MAP) Pulse Ox O2 Delivery O2 Flow Rate FiO2 10/14/16 13:24 93 Nasal Cannula 2.0 10/14/16 11:27 98.3 70 22 138/72 (94) I & O Intake and Output 10/14/16 07:00 Intake Total 2480 ml Output Total 400 ml Balance 2080 ml Intake Oral 2480 ml Output Urine Total 400 ml # Voids 11 # Bowel Movements 12 Labs: Laboratory Tests Test 10/12/16 16:30 10/12/16 22:15 10/12/16 23:58 10/13/16 05:57 Prothrombin Time 10.4 SEC (9.4-11.4) Prothromb Time International Ratio 1.0 (0.9-1.1) Stool Occult Blood Positive (NEG) Clostridium difficile Toxin (PCR) Positive (Negative) White Blood Count 6.5 x10^3/uL (4.0-11.0) 8.6 x10^3/uL (4.0-11.0) Red Blood Count 3.00 x10^6/uL (4.30-5.70) 3.80 x10^6/uL (4.30-5.70) Hemoglobin 9.2 g/dL (13.0-17.5) 11.7 g/dL (13.0-17.5) Hematocrit 27.7 % (39.0-53.0) 34.5 % (39.0-53.0) Mean Corpuscular Volume 93 fL (79-100) 91 fL (79-100) Mean Corpuscular Hemoglobin 31 pg (25-35) 31 pg (25-35) Mean Corpuscular Hemoglobin Concent 33 g/dL (31-37) 34 g/dL (31-37) Red Cell Distribution Width 14.4 % (11.5-14.5) 14.1 % (11.5-14.5) Platelet Count 159 x10^3/uL (140-400) 218 x10^3/uL (140-400) Neutrophils (%) (Auto) 69 % (31-73) 61 % (31-73) Lymphocytes (%) (Auto) 19 % (24-48) 24 % (24-48) Monocytes (%) (Auto) 11 % (0-9) 15 % (0-9) Eosinophils (%) (Auto) 0 % (0-3) 0 % (0-3) Basophils (%) (Auto) 0 % (0-3) 0 % (0-3) Neutrophils # (Auto) 4.5 x10^3uL (1.8-7.7) 5.2 x10^3uL (1.8-7.7) Lymphocytes # (Auto) 1.3 x10^3/uL (1.0-4.8) 2.0 x10^3/uL (1.0-4.8) Monocytes # (Auto) 0.7 x10^3/uL (0.0-1.1) 1.3 x10^3/uL (0.0-1.1) Eosinophils # (Auto) 0.0 x10^3/uL (0.0-0.7) 0.0 x10^3/uL (0.0-0.7) Basophils # (Auto) 0.0 x10^3/uL (0.0-0.2) 0.0 x10^3/uL (0.0-0.2) Sodium Level 137 mmol/L (136-145) Potassium Level 3.9 mmol/L (3.5-5.1) Chloride Level 101 mmol/L (98-107) Carbon Dioxide Level 30 mmol/L (21-32) Anion Gap 6 (6-14) Blood Urea Nitrogen 11 mg/dL (8-26) Creatinine 0.7 mg/dL (0.7-1.3) Estimated GFR (Cockcroft-Gault) 111.2 BUN/Creatinine Ratio 16 (6-20) Glucose Level 115 mg/dL (70-99) Calcium Level 8.4 mg/dL (8.5-10.1) Total Bilirubin 0.3 mg/dL (0.2-1.0) Aspartate Amino Transf (AST/SGOT) 41 U/L (15-37) Alanine Aminotransferase (ALT/SGPT) 51 U/L (16-63) Alkaline Phosphatase 64 U/L (46-116) Total Protein 6.4 g/dL (6.4-8.2) Albumin 2.9 g/dL (3.4-5.0) Albumin/Globulin Ratio 0.8 (1.0-1.7) Test 10/14/16 07:25 10/14/16 12:25 White Blood Count 10.6 x10^3/uL (4.0-11.0) Red Blood Count 3.98 x10^6/uL (4.30-5.70) Hemoglobin 12.3 g/dL (13.0-17.5) Hematocrit 36.5 % (39.0-53.0) Mean Corpuscular Volume 92 fL (79-100) Mean Corpuscular Hemoglobin 31 pg (25-35) Mean Corpuscular Hemoglobin Concent 34 g/dL (31-37) Red Cell Distribution Width 14.3 % (11.5-14.5) Platelet Count 222 x10^3/uL (140-400) Neutrophils (%) (Auto) 72 % (31-73) Lymphocytes (%) (Auto) 18 % (24-48) Monocytes (%) (Auto) 10 % (0-9) Eosinophils (%) (Auto) 0 % (0-3) Basophils (%) (Auto) 0 % (0-3) Neutrophils # (Auto) 7.6 x10^3uL (1.8-7.7) Lymphocytes # (Auto) 1.9 x10^3/uL (1.0-4.8) Monocytes # (Auto) 1.0 x10^3/uL (0.0-1.1) Eosinophils # (Auto) 0.0 x10^3/uL (0.0-0.7) Basophils # (Auto) 0.0 x10^3/uL (0.0-0.2) Segmented Neutrophils % 66 % (35-66) Band Neutrophils % 4 % (0-9) Lymphocytes % 19 % (24-48) Monocytes % 10 % (0-10) Basophils % 1 % (0-3) Toxic Granulation Slight Platelet Estimate Adequate (ADEQUATE) Large Platelets Occ Sodium Level 135 mmol/L (136-145) Potassium Level 3.8 mmol/L (3.5-5.1) Chloride Level 99 mmol/L (98-107) Carbon Dioxide Level 29 mmol/L (21-32) Anion Gap 7 (6-14) Blood Urea Nitrogen 10 mg/dL (8-26) Creatinine 0.7 mg/dL (0.7-1.3) Estimated GFR (Cockcroft-Gault) 111.2 Glucose Level 117 mg/dL (70-99) Calcium Level 8.2 mg/dL (8.5-10.1) Urine Collection Type Unknown Urine Color Yellow Urine Clarity Hazy Urine pH 5.5 Urine Specific [place] 1.010 Urine Protein Neg (NEG-TRACE) Urine Glucose (UA) Neg mg/dL (NEG) Urine Ketones (Stick) Neg mg/dL (NEG) Urine Blood Neg (NEG) Urine Nitrite Neg (NEG) Urine Bilirubin Neg (NEG) Urine Urobilinogen Dipstick 0.2 mg/dL (0.2 mg/dL) Urine Leukocyte Esterase Neg (NEG) Urine RBC 1-2 /HPF (0-2) Urine WBC 1-4 /HPF (0-4) Urine Squamous Epithelial Cells Few /LPF Urine Bacteria Few /HPF (0-FEW) Urine Mucus Slight /LPF Physical Exam: See objective ASSESSMENT: See Problems PLAN: IV fluid bolus. I believe he is being manipulative with the staff. Behaves differentlly with different people. Urine is clear now wo will receive a total of 3 doses of Ceftriaxone and then will start on the Flagyl for the C. Diff. Some of his meds are still being held due to risk of somulence. He is only prescribed Oxycodone 5mg up to 3 times a day but told the nurses he takes 3 three times a day. He will need skilled services. MITCHELL NAYLOR DO Oct 14, 2016 14:20
[2016-10-14 15:03] VITALS: BP 113/65
[2016-10-14 19:10] VITALS: BP 145/70
--- NOTE | 2016-10-14 19:47 | PDOC ---
Exam Alan Demential Exam: Alan Note: Please also refer to the separate dictated note~for this date of service dictated separately.~Patient seen individually. Discussed the patient with Nursing staff reviewed the chart.~Reviewed interim history and current functioning. Reviewed vital signs,~Labs/ Radiology~and current medications noted below. Continue current treatment with the changes noted in the dictated addendum note Assessment: Vital Signs: Vital Signs Date Time Temp Pulse Resp B/P (MAP) Pulse Ox O2 Delivery O2 Flow Rate FiO2 10/14/16 15:03 97.4 90 20 113/65 (81) 98 Room Air 10/14/16 13:24 2.0 I&O Intake and Output 10/14/16 07:00 Intake Total 2480 ml Output Total 400 ml Balance 2080 ml Intake Oral 2480 ml Output Urine Total 400 ml # Voids 11 # Bowel Movements 12 Labs: Laboratory Tests Test 10/14/16 07:25 10/14/16 12:25 White Blood Count 10.6 x10^3/uL (4.0-11.0) Red Blood Count 3.98 x10^6/uL (4.30-5.70) L Hemoglobin 12.3 g/dL (13.0-17.5) L Hematocrit 36.5 % (39.0-53.0) L Mean Corpuscular Volume 92 fL (79-100) Mean Corpuscular Hemoglobin 31 pg (25-35) Mean Corpuscular Hemoglobin Concent 34 g/dL (31-37) Red Cell Distribution Width 14.3 % (11.5-14.5) Platelet Count 222 x10^3/uL (140-400) Neutrophils (%) (Auto) 72 % (31-73) Lymphocytes (%) (Auto) 18 % (24-48) L Monocytes (%) (Auto) 10 % (0-9) H Eosinophils (%) (Auto) 0 % (0-3) Basophils (%) (Auto) 0 % (0-3) Neutrophils # (Auto) 7.6 x10^3uL (1.8-7.7) Lymphocytes # (Auto) 1.9 x10^3/uL (1.0-4.8) Monocytes # (Auto) 1.0 x10^3/uL (0.0-1.1) Eosinophils # (Auto) 0.0 x10^3/uL (0.0-0.7) Basophils # (Auto) 0.0 x10^3/uL (0.0-0.2) Segmented Neutrophils % 66 % (35-66) Band Neutrophils % 4 % (0-9) Lymphocytes % 19 % (24-48) L Monocytes % 10 % (0-10) Basophils % 1 % (0-3) Toxic Granulation Slight Platelet Estimate Adequate (ADEQUATE) Large Platelets Occ Sodium Level 135 mmol/L (136-145) L Potassium Level 3.8 mmol/L (3.5-5.1) Chloride Level 99 mmol/L (98-107) Carbon Dioxide Level 29 mmol/L (21-32) Anion Gap 7 (6-14) Blood Urea Nitrogen 10 mg/dL (8-26) Creatinine 0.7 mg/dL (0.7-1.3) Estimated GFR (Cockcroft-Gault) 111.2 Glucose Level 117 mg/dL (70-99) H Calcium Level 8.2 mg/dL (8.5-10.1) L Urine Collection Type Unknown Urine Color Yellow Urine Clarity Hazy Urine pH 5.5 Urine Specific [place] 1.010 Urine Protein Neg (NEG-TRACE) Urine Glucose (UA) Neg mg/dL (NEG) Urine Ketones (Stick) Neg mg/dL (NEG) Urine Blood Neg (NEG) Urine Nitrite Neg (NEG) Urine Bilirubin Neg (NEG) Urine Urobilinogen Dipstick 0.2 mg/dL (0.2 mg/dL) Urine Leukocyte Esterase Neg (NEG) Urine RBC 1-2 /HPF (0-2) Urine WBC 1-4 /HPF (0-4) Urine Squamous Epithelial Cells Few /LPF Urine Bacteria Few /HPF (0-FEW) Urine Mucus Slight /LPF Current Medications: Meds: Current Medications Sodium Chloride 1,000 ml @ 1,000 mls/hr 1X ONCE IV Last administered on 22:10; Start 10/11/16 at 22:10; Stop 10/11/16 at 23:09; Status DC Ceftriaxone Sodium 1 gm/ Sodium Chloride 50 ml @ 100 mls/hr 1X ONCE IV Last administered on 10/12/16 00:30; Start 10/12/16 at 00:30; Stop 10/12/16 at 00:59 ; Status DC Azithromycin 500 mg/Sodium Chloride 250 ml @ 250 mls/hr 1X ONCE IV Last administered on 10/12/16 00:30; Start 10/12/16 at 00:30; Stop 10/12/16 at 01:29 ; Status DC Ondansetron HCl (Zofran) 4 mg PRN Q4HRS PRN IV NAUSEA/VOMITING; Start 10/11/16 at 23:45; Stop 10/12/16 at 23:44; Status DC Morphine Sulfate (Morphine 4mg Syringe) 4 mg PRN Q2HR PRN IV PAIN Last administered on 10/12/16 12:33; Start 10/11/16 at 23:45; Stop 10/12/16 at 20:18 ; Status DC Acetaminophen (Tylenol) 650 mg PRN Q4HRS PRN PO FEVER Last administered on 10/12 01:25; Start 10/11/16 at 23:45; Stop 10/12/16 at 23:44; Status DC Azithromycin (Zithromax) 500 mg STK-MED ONCE IV ; Start 10/12/16 at 00:13; Stop 10/12/16 at 00:14; Status DC Ceftriaxone Sodium (Rocephin) 1 gm STK-MED ONCE IV ; Start 10/12/16 at 00:13; Stop 10/12/16 at 00:14; Status DC Sodium Chloride 250 ml @ As Directed STK-MED ONCE .ROUTE ; Start 10/12/16 at 00 :16; Stop 10/12/16 at 00:17; Status DC Sodium Chloride 50 ml @ As Directed STK-MED ONCE .ROUTE ; Start 10/12/16 at 00: 16; Stop 10/12/16 at 00:17; Status DC Sodium Chloride 250 ml @ As Directed STK-MED ONCE .ROUTE ; Start 10/12/16 at 00 :33; Stop 10/12/16 at 00:34; Status DC Azithromycin (Zithromax) 500 mg HS PO Last administered on 10/12/16 21:39; Start 10/12/16 at 21:00; Stop 10/13/16 at 07:53; Status DC Ceftriaxone Sodium 1 gm/ Sodium Chloride 50 ml @ 100 mls/hr Q24H IV Last administered on 10/13/16 21:17; Start 10/12/16 at 21:00; Stop 10/14/16 at 21:29 Aspirin (Aspirin Enteric Coated) 81 mg DAILYWBKFT PO Last administered on 09:51; Start 10/12/16 at 09:30; Stop 10/12/16 at 18:55; Status DC Levothyroxine Sodium (Synthroid) 37.5 mcg DAILYAC PO Last administered on 07:57; Start 10/13/16 at 07:30 Pantoprazole Sodium (Protonix) 40 mg DAILYAC PO Last administered on 10/14/16 07:58; Start 10/13/16 at 07:30 Warfarin Sodium (Coumadin) 7.5 mg DAILY16 PO Last administered on 10/12/16 16: 19; Start 10/12/16 at 16:00; Stop 10/13/16 at 08:31; Status DC Levetiracetam (Keppra) 750 mg BID PO Last administered on 10/14/16 07:57; Start 10/12/16 at 21:00 Potassium Chloride (Klor-Con) 40 meq BID PO Last administered on 10/14/16 07: 58; Start 10/12/16 at 21:00 Tizanidine HCl (Zanaflex) 2 mg TID PO Last administered on 10/14/16 14:31; Start 10/12/16 at 16:00 Venlafaxine HCl (Effexor Xr) 75 mg DAILY PO ; Start 10/13/16 at 09:00; Stop at 09:00; Status DC Venlafaxine HCl (Effexor Xr) 75 mg QHS PO Last administered on 10/13/16 21:18 ; Start 10/12/16 at 21:00 Warfarin Sodium (Coumadin Per Physician) 1 each PRN DAILY PRN MC SEE COMMENTS; Start 10/12/16 at 16:15 Pregabalin (Lyrica) 75 mg TID PO Last administered on 10/13/16 08:49; Start at 21:30; Status Future Hold Gabapentin (Neurontin) 1,200 mg Q8HRS PO Last administered on 10/14/16 14:31; Start 10/12/16 at 22:00 Oxycodone HCl (Roxicodone) 5 mg PRN Q6HRS PRN PO PAIN Last administered on 10/14 12:24; Start 10/12/16 at 21:30 Sodium Chloride 500 ml @ As Directed STK-MED ONCE .ROUTE Last administered on 10/12/16 21:51; Start 10/12/16 at 21:51; Stop 10/12/16 at 21:52; Status DC Sucralfate (Carafate) 1 gm 1X ONCE PO Last administered on 10/13/16 01:52; Start 10/13/16 at 01:00; Stop 10/13/16 at 01:01; Status DC Pantoprazole Sodium (Protonix Vial) 40 mg 1X ONCE IVP Last administered on 01:52; Start 10/13/16 at 01:00; Stop 10/13/16 at 01:01; Status DC Metronidazole (Flagyl) 500 mg Q8HRS PO Last administered on 10/14/16 14:31; Start 10/14/16 at 09:00 Sodium Chloride 500 ml @ 0 mls/hr 1X ONCE IV Last administered on 10/14/16 11 :49; Start 10/14/16 at 11:20; Stop 10/14/16 at 11:21; Status DC Sodium Chloride 1,000 ml @ 125 mls/hr Q8H IV Last administered on 10/14/16 11 :48; Start 10/14/16 at 11:20 Active Scripts Active Reported Trazodone Hcl 100 Mg Tablet 100-200 Mg PO HS PRN LAST DOSE GIVEN: DATE: TIME: NEXT DOSE DUE: DATE: TIME: K-Tab ER (Potassium Chloride) 20 Meq Tablet.er 40 Meq PO BID LAST DOSE GIVEN: DATE: TIME: NEXT DOSE DUE: DATE: TIME: Levetiracetam 750 Mg Tablet 750 Mg PO BID LAST DOSE GIVEN: DATE: TIME: NEXT DOSE DUE: DATE: TIME: Lyrica (Pregabalin) 75 Mg Capsule 75 Mg PO TID LAST DOSE GIVEN: DATE: TIME: NEXT DOSE DUE: DATE: TIME: Oxycodone Hcl 5 Mg Capsule 5-10 Mg PO PRN Q6HRS PRN LAST DOSE GIVEN: DATE: TIME: NEXT DOSE DUE: DATE: TIME: Tizanidine HCl 2 Mg Tablet 2 Mg PO TID LAST DOSE GIVEN: DATE: TIME: NEXT DOSE DUE: DATE: TIME: Venlafaxine Hcl Er (Venlafaxine Hcl) 37.5 Mg Cap.er.24h 37.5 Mg PO DAILY LAST DOSE GIVEN: DATE: TIME: NEXT DOSE DUE: DATE: TIME: Warfarin Sodium 2 Mg Tablet 7.5 Mg PO DAILY16 LAST DOSE GIVEN: DATE: TIME: NEXT DOSE DUE: DATE: TIME: Effexor Xr (Venlafaxine Hcl) 75 Mg Cap.er.24h 75 Mg PO HS LAST DOSE GIVEN: DATE: TIME: NEXT DOSE DUE: DATE: TIME: Seroquel (Quetiapine Fumarate) 25 Mg Tablet 12.5 Mg PO BID LAST DOSE GIVEN: DATE: TIME: NEXT DOSE DUE: DATE: TIME: Pantoprazole Sodium 40 Mg Tablet.dr 40 Mg PO DAILY LAST DOSE GIVEN: DATE: TIME: NEXT DOSE DUE: DATE: TIME: Buspirone Hcl 10 Mg Tablet 10 Mg PO QID LAST DOSE GIVEN: DATE: TIME: NEXT DOSE DUE: DATE: TIME: Gabapentin 600 Mg Tablet 1,200 Mg PO Q8HRS LAST DOSE GIVEN: DATE: TIME: NEXT DOSE DUE: DATE: TIME: Nasal Mist (0.9 % Sodium Chloride) 126 Ml Printer 1-2 Spr NS PRN BID PRN LAST DOSE GIVEN: DATE: TIME: NEXT DOSE DUE: DATE: TIME: Nystatin 100,000 Unit/1 Ml Oral.susp 5 Ml PO QIDPRN PRN LAST DOSE GIVEN: DATE: TIME: NEXT DOSE DUE: DATE: TIME: Levothyroxine Sodium 75 Mcg Tablet 37.5 Mcg PO DAILYAC LAST DOSE GIVEN: DATE: TIME: NEXT DOSE DUE: DATE: TIME: Tylenol (Acetaminophen) 325 Mg Tablet 650 Mg PO Q6HRS PRN LAST DOSE GIVEN: DATE: TIME: NEXT DOSE DUE: DATE: TIME: Diagnosis: Problems: (1) Major depressive disorder, recurrent episode (2) Psychosis, atypical (3) Anxiety disorder SHADI CHAVEZ MD Oct 14, 2016 19:47
[2016-10-14] MEDS: VENLAFAXINE XR 37.5 MG CAP.ER.24H. PO SCH (21:48)
--- NOTE | 2016-10-15 00:16 | PN ---
DATE: 10/11/2016 SUBJECTIVE: The patient denies any new medical or any new neurologic complaints; however, she did have mild global headaches while he was straining for bowel movements. It is reported that the patient was slightly dizzy and tachycardic after he stood up going to bathroom. He continues to have loose stool, but he did have C. difficile infection and he was started on metronidazole today. He also received plenty of fluid for possible ongoing dehydration due to diarrhea and loose stool. He felt much better after that. Currently, he denies headaches, visual disturbances, nausea, vomiting, chest pain, shortness of breath, or palpitation. He continues to have low back pain. The patient has had history of seizure disorder, etiology is uncertain. He stated his last seizure was 2 years ago and he has been on Keppra since. He has not had any recurrent seizures since; however, we do not know about etiology of his seizure and whether he needs to be continued on anticonvulsants. He eats and drinks well. OBJECTIVE: GENERAL: Well-developed and well-nourished white male, not in acute distress. VITAL SIGNS: Stable. Blood pressure 113/65, respiratory rate 20, pulse is 90, temperature 97.4, and oxygen saturation is 98% on room air. HEENT: Normocephalic and atraumatic; otherwise, unremarkable. NECK: Supple. Negative for carotid bruits, lymphadenopathy, or thyromegaly. LUNGS: Clear to A and P. CARDIOVASCULAR: Regular rate and rhythm. Normal S1 and S2. There is no S3, S4, or murmur. ABDOMEN: Soft. Bowel sounds positive. EXTREMITIES: Negative for cyanosis, clubbing, or pitting edema. NEUROLOGIC: At this time, the patient is alert and oriented x 3. Speech is fluent. There is no language dysfunction. The patient recalls 2/3 after 1 and 3 minutes. Judgment and abstract thinking are normals. The patient denies hallucination or delusion. Cranial nerves are intact. Motor examination no focal muscle bulk was seen. The tone is normal. The strength is 4/5 throughout. Sensory examination revealed normal pinprick on light touch senses throughout. Deep tendon reflexes were symmetric and hypoactive with absent Achilles responses and gait not tested. LABORATORY DATA: CBC revealed white blood cells of 10.6 thousands, hemoglobin 12.3, hematocrit 36.5, and platelet count 222,000. Chemistry revealed sodium of 135, potassium 3.8, chloride 99, CO2 of 29, BUN 10, creatinine 0.7, glucose 117, and calcium 8.2. Positive for C. difficile toxin. Urinalysis negative urinary leukocyte esterase. Normal range of red and white blood cells with a few bacteria. IMPRESSION: 1. Acute encephalopathy infectious and metabolic etiology. 2. History of seizure disorder of unknown etiology. 3. History of neuropathy in the lower extremities secondary to diabetes mellitus. 4. Multiple medical problems include diabetes mellitus, hypothyroidism, chronic low back pain, urinary tract infections, and gastroesophageal reflux disease. 5. Multiple psychiatric problems include depression and anxiety. RECOMMENDATIONS: 1. Continue with current management initiated by Dr. Navarrete. 2. The patient has good neurological progress on a daily basis. 3. We will check with the patient's sister and son about the etiology about his seizure disorder. M Crystal ARORA MD DR: CONSTANCE/ramin JOB#: [id number] / [id number]
--- NOTE | 2016-10-15 02:22 | PN ---
DATE: 10/14/2016 PSYCHIATRIC PROGRESS NOTE This note covers the elements not covered in my initial note of 10/14/2016. The patient seen individually in the evening of 10/14/2016, discussed with the nursing staff, reviewed the chart. The patient does continue to have episodes of where he states he cannot speak and then a few minutes later, these are not evident and he is speaking very well. Nursing staff have indicated that Dr. Navarrete feels there is no clear medical neurological cause to account for these episodes. The patient does have a history of major depressive disorder treated in the past, but not a bipolar disorder. He does ____ for the fact that he can turn it around shortly into these episodes, reflective of his control over it, though it is not entirely clear for now. MENTAL STATUS EXAMINATION: As I met with the patient, he remembered me from yesterday. He was having some movements of his leg and said he could not speak, was somewhat tremulous. We processed cognitive behavioral ways to improve anxiety and plan to focus on something pleasant including times he might have had at the younger age that might calm him down. No clear psychotic symptoms, suicidal or homicidal ideation. Apparently, the patient's son visited and shared with the nursing staff that at times the patient's ____ some of his psychiatric symptoms. No suicidal or homicidal ideation. IMPRESSION: History of major depressive disorder, anxiety disorder, unspecified. PLAN: The patient has been started on Keppra for questionable seizure disorder and he is also on Neurontin. He remains on the Effexor XR 75 mg a day. If it is okay with Dr. Navarrete, we will go ahead and start low dose Klonopin to help improve the anxiety which might also help any seizure like activity if that is contributing to these episodes. I will leave the neurological management to Dr. Navarrete/Dr. Pack. MAN Erin CHAVEZ MD DR: YOSELYN/ramin JOB#: [id number] / [id number]
[2016-10-15] MEDS: IV NORMAL SALINE 1,000ML 1,000 ML IV SCH ×3 (05:01→12:57)
[2016-10-15] MEDS: GABAPENTIN 400 MG CAPSULE. PO SCH ×2 (05:02→14:05)
[2016-10-15] MEDS: oxyCODONE IR 5 MG TABLET PO PRN (05:02)
[2016-10-15] MEDS: metroNIDAZOLE 500 MG TABLET PO SCH ×2 (05:02→14:05)
[2016-10-15 05:45] VITALS: BP 142/78
[2016-10-15 06:25] LABS: BASO % 1 % (0-3); EOS # 0.1 x10^3/uL (0.0-0.7); EOS % 1 % (0-3); HEMATOCRIT 32.9 % (39.0-53.0); HEMOGLOBIN 11.1 g/dL (13.0-17.5); LYMPH # 1.3 x10^3/uL (1.0-4.8); LYMPH % 18 % (24-48); MEAN CORPUSCULAR HEMOGLOBIN 31 pg (25-35); MEAN CORPUSCULAR HGB CONC 34 g/dL (31-37); MEAN CORPUSCULAR VOLUME 92 fL (79-100); MONO # 0.9 x10^3/uL (0.0-1.1); MONO % 12 % (0-9); NEUT % 69 % (31-73); PLATELET COUNT 195 x10^3/uL (140-400); RED BLOOD COUNT 3.57 x10^6/uL (4.30-5.70); RED CELL DISTRIBUTION WIDTH 14.2 % (11.5-14.5); WHITE BLOOD COUNT 7.3 x10^3/uL (4.0-11.0)
[2016-10-15 06:27] LABS: ALBUMIN 2.6 g/dL (3.4-5.0); ALBUMIN/GLOBULIN RATIO 0.8 (1.0-1.7); CREATININE 0.6 mg/dL (0.7-1.3); GFR 132.8; MAGNESIUM 1.8 mg/dL (1.8-2.4); POTASSIUM 3.7 mmol/L (3.5-5.1); TOTAL BILIRUBIN 0.3 mg/dL (0.2-1.0); TOTAL PROTEIN 5.9 g/dL (6.4-8.2)
[2016-10-15] MEDS: POTASSIUM CHLORIDE 20 MEQ TABLET.ER. PO SCH (08:00)
[2016-10-15] MEDS: tiZANidine 4 MG TABLET. PO SCH ×2 (08:00→14:05)
[2016-10-15] MEDS: PANTOPRAZOLE 40 MG TABLET. PO SCH (08:00)
[2016-10-15] MEDS: LEVOTHYROXINE 75 MCG TABLET PO SCH (08:01)
[2016-10-15] MEDS: levETIRAcetam 500 MG TABLET PO SCH (08:01)
[2016-10-15] MEDS: clonazePAM 0.5 MG TABLET PO SCH ×2 (08:02→14:05)
--- NOTE | 2016-10-15 09:42 | PN ---
DATE: 10/15/2016 SUBJECTIVE: The patient denies any new medical or neurological complaints. On occasions, he will have episode not able to complete sentences while he was on phone yesterday and the day before. The patient has had history of seizure, but etiology is uncertain. I had a long discussion with his sister and the patient regarding his seizure disorder, which was diagnosed 2 years ago at [facility] when he had 2 episodes of generalized seizure-like activities. Therefore, he was placed on Keppra and he has not had any recurrent seizure since 2014. The etiology of his seizure is unknown. The patient also complains of intermittent numbness and tingling of the lower extremities and he related that to possible peripheral neuropathy in the lower extremities. I am not sure if he had EMG/NCS of the lower extremities 2 years ago. Otherwise, he denies headaches, visual disturbances, nausea, vomiting, chest pain, shortness of breath or palpitation, dysarthria, dysphagia or vertigo. The patient did have episodes of tachycardia when he stood up yesterday. It was thought that he probably was dehydrated and he received plenty of fluid and he felt better. He is on metronidazole for C. difficile infection. OBJECTIVE: GENERAL: Well-developed, well-nourished white male, not in acute distress. VITAL SIGNS: Blood pressure 142/78, respiratory rate 20, pulse is 81 and regular, temperature 98.4, oxygen saturation is 95% on 2 liters by nasal cannula. HEENT: Normocephalic, atraumatic, otherwise unremarkable. NECK: Supple. Negative for carotid bruit, lymphadenopathy or thyromegaly. LUNGS: Clear to A and P. CARDIOVASCULAR: Regular rate and rhythm, normal S1, S2. There is no S3, S4 or murmur. ABDOMEN: Soft. Bowel sounds positive. EXTREMITIES: Negative for cyanosis, clubbing or pitting edema. NEUROLOGICAL EXAM: Mental Status: The patient is alert and oriented x 3. Speech is fluent. There is no language dysfunction. Memory, judgment and abstract thinking are fair. The patient denies hallucination or delusion. Cranial nerves are intact except for bilateral hearing loss of moderate severity. Motor examination revealed no focal muscle bulk was seen. The tone is normal. The strength is 4/5 throughout. Sensory examination revealed normal pinprick and light touch senses throughout. Deep tendon reflexes were symmetric and hypoactive with absent Achilles responses. Gait not tested. LABORATORY DATA: CBC revealed white blood cells of , hemoglobin 11.1, hematocrit 32.9, platelet count 195,000. Chemistry revealed sodium of 141, potassium 3.7, chloride 105, CO2 of 29. BUN 8, creatinine 0.6 and glucose is 101. IMPRESSION: 1. Acute encephalopathy infectious/metabolic etiology -- improved. 2. History of seizure disorder of unknown etiology, diagnosed in 2014. 3. History of peripheral neuropathy in the lower extremities. It is not know whether the patient had EMG/NCS to confirm the diagnosis. 4. Multiple psychiatric problems including depressions and anxiety. 5. Multiple medical problems include hypothyroidism, chronic low back pain, urinary tract infections, gastroesophageal reflux disease. RECOMMENDATIONS: 1. Obtain previous medical record and from 2014 when he was diagnosed with seizure and whether he had EEG, EMG/NCS of the lower extremity. 2. Otherwise, continue with current management initiated by Dr. Navarrete. 3. Follow up in my office after 1 week from discharge. 4. Possible doing EEG and EMG/NCS. M Crystal ARORA MD DR: CONSTANCE/ramin JOB#: [id number] / [id number]
[2016-10-15 12:57] VITALS: BP 156/70
[2016-10-15] MEDS ORDERED: ACETAMINOPHEN 325 MG TABLET PO ONE (13:55)
[2016-10-15] MEDS ORDERED: ACETAMINOPHEN 325 MG TABLET PO PRN ×2 (14:00→14:10)
--- NOTE | 2016-10-15 22:16 | DS ---
DATE OF DISCHARGE: 10/15/2016 HISTORY OF PRESENT ILLNESS: The patient is a 71-year-old male patient who was admitted on 10/12/2016 with altered mental status. He had been undergoing a bowel prep for colonoscopy, for which he was taking MiraLax and following liquid diet. Continue to take his medication, which are quite extensive and includes narcotics. He also was seen at the [facility], but his sister told the ER physician that he has gotten worse and she requested for him to be admitted to the hospital. He did stop taking his Coumadin 4 days ago for the bowel preparation, had been having problems with word finding, and was also very confused. He is extensively evaluated by the neurologist as well as the psychiatrist. His stool was sent for C. diff and turned out to be positive and his urine culture grew more than 100,000 colony forming units per mL of Pseudomonas aeruginosa, sensitive to almost all antibiotics except gentamicin. The patient's diarrhea has slowed down and the patient was accepted at the [facility], to continue on vancomycin as well as Cipro. PHYSICAL EXAMINATION: GENERAL: When I examined him this afternoon, he was resting slightly propped up in bed, in no apparent respiratory distress. He was somewhat pale. No jaundice, cyanosis or thyromegaly. No jugular venous distention. No limb edema. VITAL SIGNS: His heart rate was 80, blood pressure 156/70, temperature was 98.4, respiratory rate was 20, and oxygen saturation was 95% on 2 liters of oxygen. HEAD, EYES, EARS, NOSE AND THROAT: Showed normocephalic, atraumatic. NECK: Supple. HEART: Showed normal first and second heart sounds with no gallop, rub or murmur. CHEST: Clear to auscultation. No crepitation or rhonchi. ABDOMEN: Slightly distended, soft, nontender. No guarding or rigidity. No organomegaly. Hernial orifices intact. Bowel sounds normal. NEUROLOGIC: He was awake, alert, responds at times appropriately, sometimes seems to be confused; however, all his cranial nerves are intact. He moves extremities without difficulty. His intake over the last 24 hour was 3075, output was 850. LABORATORY DATA: As of this morning, his white cell count was 7300, hemoglobin was 11, hematocrit 33, MCV 92, and platelet count of 195,000. His prothrombin time was 10.4, INR 1. His chemistry showed a serum sodium 141, potassium 3.7, chloride 105, bicarbonate 29, anion gap of 7, BUN 8, creatinine 0.6, estimated GFR was 132 mL per minute. His glucose was 101, calcium was 8, magnesium was 1.8. Total bilirubin, AST, ALT, alkaline phosphatase were normal. His total protein was 5.9, albumin 2.6. His urinalysis was positive for nitrite with large amount of leukocyte esterase and more than 40 wbc's. His nasal screen for MRSA was positive and his stool for occult blood was positive. His urine culture showed a growth of more than 100,000 colony forming units per mL, susceptible to all antibiotics. His stool was positive for C. diff toxin. DISCHARGE MEDICATIONS: The patient will be discharged to [facility] to continue on Tylenol 650 mg every 6 hours, clonazepam 0.25 mg twice a day, Protonix 40 mg p.o. daily, levothyroxine 37.5 mcg daily, gabapentin 1200 mg p.o. q. 8 hourly, oxycodone 5 mg every 6 hours, venlafaxine 75 mg at bedtime, potassium chloride 40 mEq p.o. b.i.d., Keppra 750 mg once a day, tizanidine 2 mg 3 times a day. FINAL DISCHARGE DIAGNOSES: 1. Altered mental status, resolved. 2. Clostridium difficile colitis, which he will be on vancomycin 125 mg 4 times a day for 2 weeks. 3. Urinary tract infection, growing Pseudomonas aeruginosa, sensitive to antibiotics, for which he will be started on ciprofloxacin 500 mg twice a day for 10 days. He has polypharmacy, hypothyroidism, chronic back pain, marked weight loss for more than 200 pounds according to him. Long-term use of anticoagulant. GUERRERO LUNA MD DR: SHAN/ramin JOB#: [id number] / [id number]
--- NOTE | 2016-10-15 23:38 | PN ---
DATE: 10/15/2016 The patient is resting flat, comfortably in bed, in no apparent distress. He continues to have loose bowel movement, continues to complain of generalized pain at a rate 10/10 in severity, however... DICTATION ENDS HERE GUERRERO LUNA MD DR: SHAN/ramin JOB#: [id number] / [id number]
== END 2016-10-15 15:15 | DRG 371 ==
LOC: ER 21:33 → 1 SOUTH 23:37
PROVIDERS: ADMIT Family Medicine; ATTEND Family Medicine
DX: A04.7 Enterocolitis due to Clostridium difficile (principal); G93.41 Metabolic encephalopathy; N39.0 Urinary tract infection, site not specified; E44.1 Mild protein-calorie malnutrition; E03.9 Hypothyroidism, unspecified; E86.0 Dehydration; F29 Unspecified psychosis not due to a substance or known physiological condition; F41.9 Anxiety disorder, unspecified; G40.909 Epilepsy, unspecified, not intractable, without status epilepticus; G47.33 Obstructive sleep apnea (adult) (pediatric); M54.5 Low back pain; B96.5 Pseudomonas (aeruginosa) (mallei) (pseudomallei) as the cause of diseases classified elsewhere; G89.29 Other chronic pain; F32.9 Major depressive disorder, single episode, unspecified; I10 Essential (primary) hypertension; K21.9 Gastro-esophageal reflux disease without esophagitis; E11.40 Type 2 diabetes mellitus with diabetic neuropathy, unspecified; D64.9 Anemia, unspecified; E66.01 Morbid (severe) obesity due to excess calories; M19.90 Unspecified osteoarthritis, unspecified site; Z79.01 Long term (current) use of anticoagulants; Z82.49 Family history of ischemic heart disease and other diseases of the circulatory system; Z87.11 Personal history of peptic ulcer disease; Z68.23 Body mass index [BMI] 23.0-23.9, adult
CPT/HCPCS: 36415; 70450; 71010; 71250; 80048; 80053; 81001; 82140; 82274; 82803; 83605; 83690; 83735; 85007; 85027; 85610; 87040; 87086; 87186; 87324; 87641; 93005; 96361; 96365; 96368; C9113; J0456; J0696; J2270; J7040; J7050; 97116; 97530; 99285-25; J7030

== ENCOUNTER → 2017-06-14 | Outpatient (CLI) | payer MEDICARE ==
[~2017-06-14] MED LIST changes: +LEVE750T8 PO; -OXYC5TAB PO; +OXYC5TAB95 PO; +POTA20TA84 PO; +PREG75CA PO; +TRAZ-90 PO; +VENL37.57 PO; +WARF2TAB7 PO; +[UNRECOGNIZED DRUG - CODE] PO
--- NOTE | 2017-06-14 10:01 | RAD ---
Ultrasound of the abdominal aorta, 06/14/2017: History: Abdominal aortic aneurysm Duplex evaluation of the abdominal aorta was performed including grayscale, color-flow and spectral Doppler analysis. There is moderate atherosclerotic plaquing involving the abdominal aorta. The upper abdominal aorta measures approximately 2.4 cm in AP dimension. There is dilatation of the infrarenal abdominal aorta which measures approximately 3.5 cm in greatest AP diameter. Allowing for technical differences it appears to be of similar size when compared to the 07/24/2016 CT exam. Extension into the iliac arteries is not evident. IMPRESSION: 3.5 cm distal abdominal aortic aneurysm as described above. CT surveillance is suggested as this would be the most reproducible method of aneurysm delineation.
== END | disposition home or self-care (01) ==
LOC: US 07:35
PROVIDERS: ATTEND Specialist
DX: I71.4 Abdominal aortic aneurysm, without rupture (principal)
CPT/HCPCS: 76770

== ENCOUNTER → 2018-07-23 | Outpatient (CLI) | payer MEDICARE ==
[~2018-07-23] MED LIST changes: -GABA600T2 PO; +GABA600T7 PO; +OXYC5TAB4 PO; -OXYC5TAB95 PO; +TRAZ-86 PO; -TRAZ-90 PO; -WARF2TAB7 PO; +WARF2TAB96 PO; +WARF4TAB64 PO; -WARF4TAB7 PO
--- NOTE | 2018-07-23 10:17 | RAD ---
CT STUDY OF THE ABDOMEN WITHOUT CONTRAST Clinical indications: Abdominal aortic aneurysm. Follow-up study. COMPARISON: July 24, 2016. TECHNIQUE: Noncontrast helical CT scanning of the abdomen from the hemidiaphragms down to the iliac crests was performed. Without contrast, the sensitivity to detect organ pathology is decreased. Without GI contrast material, the sensitivity to detect GI tract pathology is decreased. PQRS compliance Statement One or more of the following individualized dose reduction techniques were utilized for this study: 1. Automated exposure control 2. Adjustment of the mA and/or kV according to patient size 3. Use of iterative reconstruction technique FINDINGS: There is a small cyst of the posterior superior aspect of the right lobe liver which is stable. No other hypodense lesions of the liver are seen. The spleen is not enlarged. No focal enlargement of the pancreas is seen. Gallbladder is distended but unchanged from the previous study. No radiopaque gallstones or gallbladder wall thickening is seen. No extrahepatic biliary ductal dilatation is seen. No adrenal mass is evident. No hydronephrosis or renal stones are seen. No renal mass is seen on this noncontrast study. There is a calcified abdominal aortic aneurysm. It measures 4.1 cm in greatest transverse dimension and 4.0 cm in greatest AP dimension. This has increased slightly in size from the prior study. On the prior exam, the AP dimension was 4.0 cm and the transverse dimension was 3.8 cm. The aneurysm measures 6.9 cm in length. No soft tissue thickening or fluid is seen around the aneurysm. This aneurysm begins below the origin of the renal arteries. It does not extend into the aortic bifurcation. No enlarged abdominal lymphadenopathy is evident. No obstructive bowel pattern is evident. No free air or free fluid or mesenteric edema is seen. Chronic infiltrate is seen within the right middle lobe. Chronic scarring is seen within the anterior basal segment of the left lower lobe adjacent to the fissure. This was seen on a previous chest CT dated October 12, 2016. Postsurgical changes of the spine with surgical fixation hardware is again evident. This includes an apparent lytic process of L1 and a compression fracture of T11. This is unchanged. IMPRESSION: Slight increase in size of infrarenal abdominal aortic aneurysm. No new abnormality. Electronically signed by: Jason Lira MD (07/23/2018 10:14 AM) [place] [id number]
== END | disposition home or self-care (01) ==
LOC: CT 07:24
PROVIDERS: ATTEND Specialist
DX: I71.4 Abdominal aortic aneurysm, without rupture (principal); K76.89 Other specified diseases of liver; K82.8 Other specified diseases of gallbladder; R91.8 Other nonspecific abnormal finding of lung field; M48.54XA Collapsed vertebra, not elsewhere classified, thoracic region, initial encounter for fracture
CPT/HCPCS: 74150

== ENCOUNTER 2018-11-29 16:56 | Emergency (ER) | payer MEDICARE ==
[~2018-11-29] VITALS: Ht 188 cm; Wt 79.4 kg
[~2018-11-29 16:56] MED LIST changes: -MAGN400T3 PO; +MAGN400T5 PO
--- NOTE | 2018-11-29 17:15 | PHYS DOC ---
Past History Past Medical History: GERD, Hypothyroid, Other Additional Past Medical Histor: DVT (ZOE JACOB DO) Past Surgical History: Other (ZOE JACOB DO) Alcohol Use: None Drug Use: None (ZOE JACOB DO) Adult General Chief Complaint Chief Complaint: MECHANICAL FALL HPI HPI Patient is a 73-year-old male presents with head injury after falling out of bed around 3:00 this morning. Denies any new weakness or numbness. Reports the pain is mild. Patient is on Coumadin due to previous history of DVT. No chest pain or palpitations. Reports his tetanus vaccine status is up-to-date. Bleeding was controlled with pressure. No significant headache. Symptoms are mild.[] (ZOE JACOB DO) Review of Systems Review of Systems Constitutional: Denies fever or chills [] Eyes: Denies change in visual acuity, redness, or eye pain [] HENT: Denies nasal congestion or sore throat [] Respiratory: Denies cough or shortness of breath [] Cardiovascular: No chest pain or palpitations[] GI: Denies abdominal pain, nausea, vomiting, bloody stools or diarrhea [] : Denies dysuria or hematuria [] Musculoskeletal: Denies back pain or joint pain [] Integument: Denies rash or skin lesions [] Neurologic: Denies headache, focal weakness or sensory changes [] Endocrine: Denies polyuria or polydipsia [] All other systems were reviewed and found to be within normal limits, except as documented in this note. (ZOE JACOB DO) Allergies Allergies Allergies Coded Allergies Type Severity Reaction Last Updated Verified I S O L A T I O N *CONTACT* Allergy Unknown 02/24/15 Yes NKMA Allergy Unknown 02/24/15 Yes (ZOE JACOB DO) Physical Exam Physical Exam Constitutional: Well developed, well nourished, no acute distress, non-toxic appearance. [] HENT: Normocephalic, transverse forehead laceration, approximately 4 cm long, superior to the patient's left side, inferior to the patient's right, bilateral external ears normal, TMs are clear without any blood or fluid. Oropharynx moist, no oral exudates, nose normal. [] Eyes: PERRLA, EOMI, conjunctiva normal, no discharge. [] Neck: Normal range of motion, no tenderness, supple, no stridor. [] Cardiovascular:Heart rate regular rhythm, no murmur [] Lungs & Thorax: Bilateral breath sounds clear to auscultation [] Abdomen: Bowel sounds normal, soft, no tenderness, no masses, no pulsatile masses. [] Skin: Warm, dry, no erythema, no rash. [] Back: No tenderness, no CVA tenderness. [] Extremities: No tenderness, no cyanosis, no clubbing, ROM intact, no edema. [] Neurologic: Alert and oriented X 3, normal motor function, normal sensory function, no focal deficits noted. [] Psychologic: Affect normal, judgement normal, mood normal. [] (ZOE JACOB DO) EKG EKG [] (ZOE JACOB DO) Radiology/Procedures Radiology/Procedures [] (ZOE JACOB DO) Impressions: PROCEDURE: CT HEAD AND CERVICAL SPINE WO CT HEAD AND CERVICAL SPINE WO dated 11/29/2018 5:10 PM. Comparison: 10/11/2016 Clinical Indication: Pain after fall. Technical factors: Contiguous 5 mm axial images of the head were obtained from the skullbase to the vertex. No contrast was administered. In addition, 3 mm axial images of the cervical spine were acquired with thin cut coronal and sagittal reconstructions. Findings head: Ventricles and sulci are mildly prominent for age. No midline shift or mass effect. Mild patchy low density in the deep/subcortical periventricular white matter. No hemorrhage or extra-axial collection. Posterior fossa and brainstem are unremarkable There is complete opacification of the left maxillary sinus. Postsurgical changes of the medial maxillary wall on the right. Mastoid air cells are clear. No apparent calvarial abnormality. IMPRESSION HEAD: 1. No evidence of acute intracranial hemorrhage or mass. 2. Mild chronic small vessel ischemic changes and atrophy. Findings cervical spine: Images were acquired from the skull base to T2. There is anterolisthesis of C7 on T1 with fusion at the level the disc and facet joints. Sagittal alignment is otherwise anatomic. Vertebral body heights are maintained. Posterior elements are intact. No evidence of fracture. No prevertebral soft tissue swelling. Moderate endplate hypertrophic changes throughout. Moderate to severe disc space narrowing at C5-C6 and C6-C7. Multilevel uncovertebral spurring and facet arthropathy. No significant central canal compromise. There is mild/moderate multilevel foraminal narrowing. Visualized soft tissue structures are unremarkable. Limited images of lung apices are clear. IMPRESSION CERVICAL SPINE: 1. No evidence of fracture from skull base to T2. 2. Mild to moderate multilevel spondylosis. 3. Anterolisthesis and fusion of C7 on T1. Electronically signed by: Adama Melendez MD (11/29/2018 6:10 PM) [facility] (OSVALDO CAMPOS Jr., DO) Course & Med Decision Making Course & Med Decision Making Pertinent Labs and Imaging studies reviewed. (See chart for details) ED course: Patient arrived, was placed in bed, and tolerated exam well. Laceration was repaired. He was transported to and from [place] with any complications. At 1800 patient care was endorsed to the nighttime physician with laboratory testing and imaging results pending.[] (ZOE JACOB DO) Dragon Disclaimer Dragon Disclaimer This electronic medical record was generated, in whole or in part, using a voice recognition dictation system. (ZOE JACOB DO) Departure Departure: Impression: Primary Impression: Forehead laceration Additional Impression: Head injury due to trauma Disposition: 01 HOME, SELF-CARE Condition: STABLE Referrals: CIARA SCOTT MD (PCP) Patient Instructions: Head Injury, Adult, Laceration Care, Adult Additional Instructions: Keep appointment with your primary care provider on Saturday. I would recommend holding Coumadin for this evening's dose and have primary care doctor check an INR as well as CBC on Saturday. Laceration Repair Lac Repair Indication: Forehead laceration[] Procedure: The patient was placed in the appropriate position and the area was then cleansed. The laceration was closed utilizing Mastisol, Steri-Strips, and skin glue. Total repaired wound length: 4 cm. Other Items: None The patient tolerated the procedure well Complications: None (ZOE JACOB DO) Problem Qualifiers Primary Impression: Forehead laceration Encounter type: initial encounter Qualified Codes: S01.81XA - Laceration without foreign body of other part of head, initial encounter Additional Impression: Head injury due to trauma Encounter type: initial encounter Qualified Codes: S09.90XA - Unspecified injury of head, initial encounter ZOE JACOB DO Nov 29, 2018 17:15 OSVALDO CAMPOS Jr., DO Nov 29, 2018 18:46
--- NOTE | 2018-11-29 18:13 | RAD ---
CT HEAD AND CERVICAL SPINE WO dated 11/29/2018 5:10 PM. Comparison: 10/11/2016 Clinical Indication: Pain after fall. Technical factors: Contiguous 5 mm axial images of the head were obtained from the skullbase to the vertex. No contrast was administered. In addition, 3 mm axial images of the cervical spine were acquired with thin cut coronal and sagittal reconstructions. Findings head: Ventricles and sulci are mildly prominent for age. No midline shift or mass effect. Mild patchy low density in the deep/subcortical periventricular white matter. No hemorrhage or extra-axial collection. Posterior fossa and brainstem are unremarkable There is complete opacification of the left maxillary sinus. Postsurgical changes of the medial maxillary wall on the right. Mastoid air cells are clear. No apparent calvarial abnormality. IMPRESSION HEAD: 1. No evidence of acute intracranial hemorrhage or mass. 2. Mild chronic small vessel ischemic changes and atrophy. Findings cervical spine: Images were acquired from the skull base to T2. There is anterolisthesis of C7 on T1 with fusion at the level the disc and facet joints. Sagittal alignment is otherwise anatomic. Vertebral body heights are maintained. Posterior elements are intact. No evidence of fracture. No prevertebral soft tissue swelling. Moderate endplate hypertrophic changes throughout. Moderate to severe disc space narrowing at C5-C6 and C6-C7. Multilevel uncovertebral spurring and facet arthropathy. No significant central canal compromise. There is mild/moderate multilevel foraminal narrowing. Visualized soft tissue structures are unremarkable. Limited images of lung apices are clear. IMPRESSION CERVICAL SPINE: 1. No evidence of fracture from skull base to T2. 2. Mild to moderate multilevel spondylosis. 3. Anterolisthesis and fusion of C7 on T1. Electronically signed by: Adama Melendez MD (11/29/2018 6:10 PM) [facility]
[2018-11-29 18:28] LABS: CALCIUM 8.5 mg/dL (8.5-10.1); CREATININE 0.7 mg/dL (0.7-1.3); GFR 110.5; POTASSIUM 4.5 mmol/L (3.5-5.1)
[2018-11-29 19:01] VITALS: BP 130/90
== END 2018-11-29 19:08 | disposition home or self-care (01) ==
LOC: ER 16:56
DX: S01.81XA Laceration without foreign body of other part of head, initial encounter (principal); K21.9 Gastro-esophageal reflux disease without esophagitis; E03.9 Hypothyroidism, unspecified; R51 Headache; Z86.718 Personal history of other venous thrombosis and embolism; Z91.041 Radiographic dye allergy status; W06.XXXA Fall from bed, initial encounter; Y93.89 Activity, other specified; Y92.89 Other specified places as the place of occurrence of the external cause; Y99.8 Other external cause status
CPT/HCPCS: 12013; 36415; 70450; 72125; 80048; 85610; 85730; 99285

== ENCOUNTER → 2018-12-31 | Outpatient (CLI) | payer MEDICARE ==
--- NOTE | 2018-12-31 12:01 | RAD ---
Examination: CT HEAD WO CONTRAST History: Pain, history of falls Comparison/Correlation: 11/29/2018 CT head and cervical spine without contrast Findings: Axial images of the head were obtained without contrast. Atrophy is present. There are changes of white matter noted. Atrophy is greater involving the left cerebral hemisphere as compared to the right. There is no midline shift or mass effect. Opacification of the partially visualized left right-sided sinus is noted. Absence of the maxillary sinus wall bilaterally is noted. Postoperative findings also appear to be present involving the ethmoid air cells. Impression: No acute process. PQRS Compliance Statement: One or more of the following individualized dose reduction techniques were utilized for this examination: 1. Automated exposure control 2. Adjustment of the mA and/or kV according to patient size 3. Use of iterative reconstruction technique Electronically signed by: Arya Kumar MD (12/31/2018 11:58 AM) [facility]
== END | disposition home or self-care (01) ==
LOC: CT 11:30
PROVIDERS: ATTEND Specialist
DX: G31.89 Other specified degenerative diseases of nervous system (principal); J34.89 Other specified disorders of nose and nasal sinuses
CPT/HCPCS: 70450

== ENCOUNTER 2019-10-21 19:56 | Observation (INO) | payer MEDICARE ==
[~2019-10-21] VITALS: Ht 188 cm; Wt 76.4 kg
[~2019-10-21 19:56] MED LIST changes: +TIZA2TAB4 PO; +TRAZ-125 PO; -TRAZ-86 PO; -[UNRECOGNIZED DRUG - CODE] PO
--- NOTE | 2019-10-21 20:07 | PHYS DOC ---
Past History Past Medical History: Arthritis, CVA, Diabetes, DVT, GERD, Hypothyroid, Seizure, TIA, Other Additional Past Medical Histor: chronic back pain Past Surgical History: Other Additional Past Surgical Histo: nose surgery, back surgery Alcohol Use: None Drug Use: None General Adult EDM: Chief Complaint: FACE PROBLEM HPI: HPI: " My face, nose and lip are numb.. it started this morning .. my doctor told me to come.... in...and get check out for having a stroke..it started this morning.. .. I usually see Dr.Mc Noriega...".." I ve been a little short of ..breath...today..." Patient is a 74 year old male who presents with above complaints of numbness of upper lip, nose and mouth starting this morning. Pt.states by time of arrival to our ED most of the numbness was resolved. Patient states he has had some changes in his ability to smell things. Patient was seen on arrival and taken directly to CT. Patient currently lives with his sister. Does have gait difficulties and uses a wheelchair to get around. Is able to stand. Does have a history of chronic back pain, diabetes, episodic hypoglycemia, seizure disorder, constipation, GERD, anemia, episodes of hyponatremia, coronary artery disease, , arthritis, and does have history of dementia. Patient currently lives with his sister. Review of Systems: Review of Systems: Constitutional: Denies fever or chills Eyes: Denies change in visual acuity HENT: Denies nasal congestion or sore throat Respiratory: History of a nonproductive cough and shortness of breath Cardiovascular: Denies chest pain or edema GI: Denies abdominal pain, nausea, vomiting, bloody stools or diarrhea : Denies dysuria Musculoskeletal: Denies back pain or joint pain Integument: Denies rash Neurologic: Denies headache, focal weakness or sensory changes Endocrine: Denies polyuria or polydipsia Lymphatic: Denies swollen glands Psychiatric: Denies depression or anxiety Heart Score: HEART Score for Chest Pain: HEART Score for Chest Pain Response (Comments) Value History Slighlty/Non-Suspicious 0 ECG Nonspecific Repolarizatio 1 Age > 65 2 Risk Factors 1 or 2 Risk Factors 1 Troponin < Normal Limit 0 Total 4 Risk Factors: Risk Factors: DM, Current or recent (<one month) smoker, HTN, HLP, family history of CAD, obesity. Risk Scores: Score 0 - 3: 2.5% MACE over next 6 weeks - Discharge Home Score 4 - 6: 20.3% MACE over next 6 weeks - Admit for Clinical Observation Score 7 - 10: 72.7% MACE over next 6 weeks - Early Invasive Strategies Family History: Family History: Noncontributory to presentation Current Medications: Current Meds: See nursing for home meds Allergies: Allergies: Allergies Coded Allergies Type Severity Reaction Last Updated Verified I S O L A T I O N *CONTACT* Allergy Unknown 02/24/15 Yes NKMA Allergy Unknown 02/24/15 Yes Physical Exam: PE: Constitutional: no acute distress, non-toxic appearance. [] HENT: Normocephalic, atraumatic, bilateral external ears normal, oropharynx moist, no oral exudates, nose normal. Complains of numbness to the skin on the nose, lips. Eyes: PERRLA, EOMI, conjunctiva normal, no discharge. [] Neck: Normal range of motion, no tenderness, supple, no stridor. [] Cardiovascular: Bradycardia heart rate regular rhythm, no murmur [] PMI to the left Lungs & Thorax: Bilateral breath sounds equal at apex auscultation [] Abdomen: Bowel sounds normal, soft, no tenderness, no masses, no pulsatile masses. [] Skin: Warm, dry, no erythema, no rash. Poor turgor Back: No tenderness, no CVA tenderness. Old scars Extremities: No tenderness, no cyanosis, no clubbing, ROM intact, no edema. Arthritic Neurologic: Alert and oriented X 3, moves all extremities on request, does have distal sensory, no new focal deficits noted. [] Other than subjective numbness around the mouth and nose. Patient has history of chronic gait disorder due to previous back surgery. Psychologic: Affect anxious , judgement normal, mood normal. Some obvious memory issues. EKG: EKG: My interpretation EKG shows a sinus bradycardia 55 bpm. No findings of acute STEMI of contralateral changes. There is some hyperdynamic findings. There is a slightly prolonged OR interval. OR interval was 278 ms [] Radiology/Procedures: Radiology/Procedures: [address] [address] IMAGING REPORT Signed PATIENT: EBER MACHADO ACCOUNT: [id number] : 1945 LOCATION: ER AGE: 74 SEX: M EXAM STATUS: PRE ER ORD. PHYSICIAN: ROSANA VILLEDA MD REASON: Numbness of face PROCEDURE: CT HEAD WO CONTRAST CT head without contrast dated 10/21/2019. Comparison made to 12/31/2018. CLINICAL INDICATION: Numbness of face. TECHNIQUE: Contiguous axial imaging the head was performed from skull base to vertex. No contrast administered. One or more of the following individualized dose reduction techniques were utilized for this examination: 1. Automated exposure control 2. Adjustment of the mA and/or kV according to patient size 3. Use of iterative reconstruction technique. FINDINGS: Ventricles and sulci are moderately prominent for age. No midline shift or mass effect. Mild patchy low density in the deep/subcortical periventricular white matter. No hemorrhage or extra-axial collection. Posterior fossa and brainstem unremarkable. Subtotal opacification of the left maxillary sinus with postsurgical changes of the medial maxillary wall on the right. Mild mucosal thickening of the ethmoid air cells. The mastoid air cells are clear. No apparent calvarial abnormality. IMPRESSION: 1. No evidence of acute intracranial hemorrhage or mass. 2. Mild chronic small vessel ischemic changes and atrophy. 3. Chronic sinus disease, similar to prior exam. Electronically signed by: Adama Melendez MD (10/21/2019 8:19 PM) [facility] [place] SIGNED BY: ADAMA MELENDEZ MD DATE: 10/21/192018 CC: ROSANA VILLEDA MD; CIARA SCOTT MD ~ [][place] [address] IMAGING REPORT Signed PATIENT: EBER MACHADO ACCOUNT: [id number] : 1945 LOCATION: ER AGE: 74 SEX: M EXAM STATUS: PRE ER ORD. PHYSICIAN: ROSANA VILLEDA MD REASON: Dyspnea, numbness of face PROCEDURE: CHEST AP ONLY Single view chest dated 10/21/2019. Comparison made to September 12, 2016. CLINICAL INDICATION: Dyspnea. FINDINGS: Single upright portable exam performed. Heart and mediastinal contours are stable. Tortuosity and ectasia of the thoracic aorta, unchanged. Asymmetric increased density at the right hilum, similar to prior study. No consolidation or pleural effusion. No pneumothorax. IMPRESSION: No acute radiographic abnormality. Stable findings compared to 09/11/2016. Electronically signed by: Adama Melendez MD (10/21/2019 8:20 PM) [facility] [place] SIGNED BY: ADAMA MELENDEZ MD DATE: 10/21/192019 CC: ROSANA VILLEDA MD; CIARA SCOTT MD ~ Course & Med Decision Making: Course & Med Decision Making Pertinent Labs and Imaging studies reviewed. (See chart for details) Discussed presentation, testing and tx. plan with Dr. Smith. Admit for further eval and tx. Neurology consult. Pt. not a candidate for TPA has an extremely high INR. Minimal neural symptoms. Impression: 1. TIA/ CVA 2. Anemia hemoglobin 11.2 3. Elevated monocytes 14 4. Critical INR 5 5. Hypo natremia 129 6. Diabetes 164 7. Viral Syndrome 8.. Chronic Back Pain 9. Gaid disorder. [] Dragon Disclaimer: Dragon Disclaimer: This electronic medical record was generated, in whole or in part, using a voice recognition dictation system. Departure Departure: Disposition: 01 HOME/RESIDENCE PRIOR TO ADM Condition: STABLE Referrals: CIARA SCOTT MD (PCP) Justification of Admission: Justification of Admission: Justification of Admission Dx: Yes Sepsis: Altered Mental Status Comments: CriticalINR= 5.0 Dragon Disclaimer This chart was dictated in whole or in part using Voice Recognition software in a busy, high-work load, and often noisy Emergency Department environment. It may contain unintended and wholly unrecognized errors or omissions. ROSANA VILLEDA MD Oct 21, 2019 20:07
--- NOTE | 2019-10-21 20:22 | RAD ---
CT head without contrast dated 10/21/2019. Comparison made to 12/31/2018. CLINICAL INDICATION: Numbness of face. TECHNIQUE: Contiguous axial imaging the head was performed from skull base to vertex. No contrast administered. One or more of the following individualized dose reduction techniques were utilized for this examination: 1. Automated exposure control 2. Adjustment of the mA and/or kV according to patient size 3. Use of iterative reconstruction technique. FINDINGS: Ventricles and sulci are moderately prominent for age. No midline shift or mass effect. Mild patchy low density in the deep/subcortical periventricular white matter. No hemorrhage or extra-axial collection. Posterior fossa and brainstem unremarkable. Subtotal opacification of the left maxillary sinus with postsurgical changes of the medial maxillary wall on the right. Mild mucosal thickening of the ethmoid air cells. The mastoid air cells are clear. No apparent calvarial abnormality. IMPRESSION: 1. No evidence of acute intracranial hemorrhage or mass. 2. Mild chronic small vessel ischemic changes and atrophy. 3. Chronic sinus disease, similar to prior exam. Electronically signed by: Adama Melendez MD (10/21/2019 8:19 PM) [facility]
--- NOTE | 2019-10-21 20:23 | RAD ---
Single view chest dated 10/21/2019. Comparison made to September 12, 2016. CLINICAL INDICATION: Dyspnea. FINDINGS: Single upright portable exam performed. Heart and mediastinal contours are stable. Tortuosity and ectasia of the thoracic aorta, unchanged. Asymmetric increased density at the right hilum, similar to prior study. No consolidation or pleural effusion. No pneumothorax. IMPRESSION: No acute radiographic abnormality. Stable findings compared to 09/11/2016. Electronically signed by: Adama Melendez MD (10/21/2019 8:20 PM) [facility]
[2019-10-21 20:44] LABS: BASO % 1 % (0-3); EOS # 0.1 x10^3/uL (0.0-0.7); EOS % 4 % (0-3); HEMATOCRIT 33.9 % (39.0-53.0); HEMOGLOBIN 11.2 g/dL (13.0-17.5); LYMPH # 1.2 x10^3/uL (1.0-4.8); LYMPH % 38 % (24-48); MEAN CORPUSCULAR HEMOGLOBIN 32 pg (25-35); MEAN CORPUSCULAR HGB CONC 33 g/dL (31-37); MEAN CORPUSCULAR VOLUME 95 fL (79-100); MONO # 0.4 x10^3/uL (0.0-1.1); MONO % 14 % (0-9); NEUT # 1.4 x10^3uL (1.8-7.7); NEUT % 43 % (31-73); PLATELET COUNT 267 x10^3/uL (140-400); RED BLOOD COUNT 3.56 x10^6/uL (4.30-5.70); RED CELL DISTRIBUTION WIDTH 14.3 % (11.5-14.5); WHITE BLOOD COUNT 3.2 x10^3/uL (4.0-11.0)
[2019-10-21 21:05] LABS: CALCIUM 8.2 mg/dL (8.5-10.1); CREATININE 0.8 mg/dL (0.7-1.3); GFR 94.5; POTASSIUM 4.1 mmol/L (3.5-5.1)
[2019-10-21 21:19] LABS: MAGNESIUM 1.8 mg/dL (1.8-2.4)
--- NOTE | 2019-10-21 21:38 | EKG ---
[address] [address] Test Date: 2019-10-21 Test Time: 20:45:52 Pat Name: EBER MACHADO Department: Room: Gender: M [employer] Supervisor: : 1945 Requested By: ROSANA VILLEDA Order Number: [id number] Reading MD: Jevon Parrish MD Measurements Intervals [place] Rate: 55 P: 34 CO: 278 QRS: 47 QRSD: 84 T: 49 QT: 384 QTc: 369 Interpretive Statements SINUS RHYTHM PROLONGED CO INTERVAL Electronically Signed On 10-22-2019 8:55:47 CDT by Jevon Parrish MD
[2019-10-21 21:54] LABS: BARBITURATES NEG (NEG); BENZODIAZEPINES NEG (NEG); CANNABINOIDS NEG (NEG); COCAINE NEG (NEG); METHADONE NEG (NEG); OPIATES NEG (NEG); PHENCYCLIDINE NEG (NEG)
[2019-10-21 21:58] LABS: AMPHETAMINE/METHAMPHETAMINE NEG (NEG)
[2019-10-21 22:34] LABS: BILIRUBIN,URINE NEG (NEG); CLARITY,URINE CLEAR; COLOR,URINE YELLOW; GLUCOSE,URINE NEG (NEG)
[2019-10-21 22:35] LABS: BACTERIA,URINE 0 /HPF (0-FEW); NITRITE,URINE NEG (NEG); RBC,URINE OCC /HPF (0-2); UROBILINOGEN,URINE 0.2 mg/dL (0.2 mg/dL); WBC,URINE OCC /HPF (0-4)
[2019-10-21] MEDS: SODIUM BICARB ADULT 8.4% 50 MEQ/50 ML DISP.SYRIN. IV ONE ×2 (23:47→23:49)
[2019-10-22] MEDS ORDERED: ONDANSETRON PF 4 MG/2 ML VIAL. IVP PRN (01:00)
[2019-10-22] MEDS ORDERED: ACETAMINOPHEN 325 MG TABLET PO PRN (01:00)
[2019-10-22 01:18] VITALS: BP 164/82
[2019-10-22 06:05] VITALS: BP 156/84
[2019-10-22] MEDS ORDERED: IPRATRPIUM/ALBUTEROL 0.5/2.5MG 3 ML NEBU. NEB SCH (08:00)
[2019-10-22] MEDS ORDERED: WARF1TAB69 PO (08:21)
[2019-10-22] MEDS ORDERED: POTA20TA4 PO (08:21)
[2019-10-22] MEDS ORDERED: LEVO75TA5 PO (08:21)
[2019-10-22] MEDS ORDERED: PREG75CA67 PO (08:21)
[2019-10-22] MEDS ORDERED: PANT40TA5 PO (08:21)
[2019-10-22] MEDS ORDERED: TRAZ-125 PO (08:21)
[2019-10-22] MEDS ORDERED: GABA-586 PO (08:21)
[2019-10-22] MEDS ORDERED: VENL37.5 PO (08:21)
[2019-10-22] MEDS ORDERED: OXYC5TAB2 PO (08:21)
[2019-10-22] MEDS ORDERED: LEVE750T41 PO (08:21)
--- NOTE | 2019-10-22 09:03 | RAD ---
Clinical indications: TIA. Weakness/numbness. Duplex sonography of the cervical portion of both carotid arteries was performed including color flow imaging and spectral waveform analysis with flow velocity measurement and garcia scale evaluation. Right side: Peak systolic flow velocity of the CCA is 69 cm/sec. Peak systolic flow velocity of the ICA is 66 cm/sec. Thus, the ICA/CCA ratio is less than 1.0. Peak end diastolic flow velocity of the ICA is 20 cm/sec. The peak systolic velocity of the ECA is 74 cm/sec. Left side: Peak systolic flow velocity of the CCA is 81 cm/sec. Peak systolic flow velocity of the ICA is 93 cm/sec. Thus, the ICA/CCA ratio is 1.1. Peak end diastolic flow velocity of the ICA is 29 cm/sec. Peak systolic flow velocity of the ECA is 52 cm/sec. There is mild calcified plaque within the right carotid bulb and origin of the right ICA which is less than 50 percent. Less prominent calcified plaque is seen within the left carotid bulb. There is soft plaque involving the origin of the left ECA and origin of left ICA. This is less than 50 percent. Antegrade vertebral flow is seen bilaterally. The measurements were made using the NASCET criteria. Impression: Mild plaque formation within the carotid bifurcations bilaterally which is less than 50 percent. Electronically signed by: Jason Lira MD (10/22/2019 9:00 AM) [id number]
[2019-10-22] MEDS ORDERED: oxyCODONE/APAP 10/325 1 TAB TABLET PO ONE (09:30)
--- NOTE | 2019-10-22 09:42 | HP ---
ADMIT DATE: ATTENDING PHYSICIAN: Dr. Guy. CHIEF COMPLAINT: Facial numbness. HISTORY OF PRESENT ILLNESS: The patient is a 74-year-old gentleman with numbness of the upper lip, nose and mouth. He denied any recent trauma. He called his doctor's office and they were concerned about stroke. He was sent to the ED for evaluation. He has been fairly disabled. He has not been able to drive. He is in a wheelchair. He lost a lot of weight. He has been doing his best to get around independently in his duplex. He has chronic back pain, diabetes, hypoglycemia, seizure disorder, constipation, gastroesophageal reflux disease. The CT of the head demonstrated no acute strokes or bleeds; however, he was on Coumadin. His INR was elevated at 5.1. He was admitted then for observation, coagulopathy and followup INRs. PAST MEDICAL HISTORY: Significant for generalized debilitation. He had morbid obesity. He has lost 165 pounds in the last year, TIAs, idiopathic seizure disorder, hypothyroidism, gastroesophageal reflux disease, remote history of DVT that is why he is on Coumadin, type 2 diabetes, degenerative arthritis. MEDICATIONS: Current medicines were reviewed. He takes Coumadin 5 mg alternating 7.5 mg according to the patient. Tylenol, BuSpar, Neurontin, Keppra 750 b.i.d., Synthroid, nystatin, oxycodone, Protonix, potassium, Lyrica, Seroquel, Zanaflex, Effexor and Coumadin. It is unclear at the dosage he was taking, supposedly 7.5 mg alternating with 2.5 mg. It is unclear at this time what the exact dosage is. ALLERGIES: He has no known drug allergies. FAMILY HISTORY: Noncontributory. REVIEW OF SYSTEMS: Significant for the generalized debilitation. He can transfer from bed to wheelchair. He is nonambulatory. He has not driven in 10 years. He gets around in his duplex house, it is one level. Transportation provided by [employer] as well as a sister who lives in town. He denied any recent fevers, chills, cough, congestion, shortness of breath. All other systems reviewed and turned to be negative. PHYSICAL EXAMINATION: GENERAL: When I saw him, this is a pleasant gentleman who was alert, appearing chronically ill. INITIAL VITAL SIGNS: Showed a blood pressure of 122/73 mmHg, pulse of 56 and regular, temperature 98.1 degrees Fahrenheit, room air saturations were 96%. HEENT: Head is without trauma. Pupils are reactive. Sclerae nonicteric. Oropharynx clear. Mucous membranes are a bit dry. NECK: Supple, no bruits. LUNGS: Good breath sounds, shallow respirations. No stridor. CARDIOVASCULAR: Showed a bradycardic rhythm, rate about 58 per minute. No gallops. Peripheral pulses are palpable and full. ABDOMEN: Soft, scaphoid, nontender, no organomegaly. Bowel sounds are hypoactive. EXTREMITIES: Showed trace edema. NEUROLOGIC: Focally intact. He is weak in his legs. [employer] upper arms were symmetrical and strong. He had no focal deficits. Speech is fluent. SKIN: Warm and dry. PERTINENT LABORATORY STUDIES: Nonfasting blood sugar is 164. Creatinine is 0.8 mg percent, sodium 129 mEq, potassium 4.1 mEq per liter. Hemoglobin 11.2 g/dL with a white count of 3200. ASSESSMENT: 1. A 74-year-old gentleman with transient ischemic attack symptoms ruled out. 2. Perioral numbness may be due to hyperventilation. 3. Generalized debilitation. 4. Coagulopathy due to Coumadin. 5. History of seizure disorder. 6. History of old cerebrovascular accident. 7. Morbid obesity with weight loss. 8. Generalized debilitation. 9. Chronic low back pain. PLAN: 1. Observation status. 2. Continue some home meds. 3. Coumadin has been held. 4. Serial followup INRs. ALEX GUY MD DR: LATONIA/ramin JOB#: [id number] / [id number] CIARA Gibbs MD
--- NOTE | 2019-10-22 09:45 | DS ---
DATE OF DISCHARGE: 10/22/2019 ATTENDING PHYSICIAN: Dr. Guy. FINAL DISCHARGE DIAGNOSES: 1. Coagulopathy without active bleeding. 2. Transient ischemic attack ruled out. 3. Type 2 diabetes. 4. History of deep venous thrombosis, remotely. 5. Generalized debilitation. He is nonambulatory. 6. Idiopathic seizure disorder. 7. Hypothyroidism, on replacement. 8. Chronic low back pain. HISTORY AND PHYSICAL: This 74-year-old gentleman had some perioral numbness, nonspecific in nature. He called the office. They were concerned about TIAs and stroke. He was sent to the Emergency Department. He has difficulties walking. He is nonambulatory, transferred from bed to wheelchair. He has multiple other issues. He was found to have no evidence of stroke. CT of the head showed no acute changes; however, his INR was elevated without active bleeding. INR was 5.0, APTT was 53 seconds. Therefore, he was admitted with coagulopathy stopping his Coumadin and following up with serial INRs. PHYSICAL EXAMINATION: Please see the dictated note. PERTINENT LABORATORY AND X-RAY STUDIES: INR as noted. Hemoglobin maintained 11.2 g/dL with white count of 3200. Sodium 129 mEq, asymptomatic. Potassium 4.1 mEq. His nonfasting blood sugar 164. Creatinine is 0.8 mg/dL. Cardiac enzymes negative for myocardial ischemia. COURSE IN THE HOSPITAL: The patient was admitted to the hospital overnight. We held his Coumadin. I was in the process of getting serial INRs. He was not actively bleeding. He had no further symptoms or perioral numbness. He really did not want to stay in the hospital. He reassured me that he has intentions of following up as an outpatient. I felt this is reasonable. Right now, he is a borderline functionality in terms of being able to live independently. He has good health with a local [facility] as well as a sister who is able to , does not drive. He transfers from bed to wheelchair. There are no stairs. Therefore, on the next hospital day, I agreed to send him home with a caveat of following up with Dr. Manzo following Saturday. He should get a recheck INR at that time. Other home meds are unchanged. He is going to hold the Coumadin over the weekend. He should continue his oxycodone as needed for pain, Neurontin as scheduled, Keppra twice a day, Synthroid, Protonix, Lyrica, Seroquel, Zanaflex p.r.n. and Effexor dose is unchanged. The patient was then discharged from our hospital in stable condition with explicit instructions and followup care. ALEX GUY MD DR: LATONIA/ramin JOB#: [id number] / [id number] CIARA Gibbs MD
== END 2019-10-22 10:44 | disposition home or self-care (01) ==
LOC: ER 19:56 → 1 SOUTH 23:30 → INTOOBSV 23:30
PROVIDERS: ADMIT Internal Medicine; ATTEND Internal Medicine
DX: R20.0 Anesthesia of skin (principal); Z20.828 Contact with and (suspected) exposure to other viral communicable diseases; R41.82 Altered mental status, unspecified; R06.4 Hyperventilation; R53.81 Other malaise; D68.9 Coagulation defect, unspecified; G89.29 Other chronic pain; M54.5 Low back pain; E66.01 Morbid (severe) obesity due to excess calories; E87.1 Hypo-osmolality and hyponatremia; E03.9 Hypothyroidism, unspecified; K21.9 Gastro-esophageal reflux disease without esophagitis; E11.9 Type 2 diabetes mellitus without complications; M19.90 Unspecified osteoarthritis, unspecified site; B34.9 Viral infection, unspecified; D64.9 Anemia, unspecified; Z79.01 Long term (current) use of anticoagulants; Z86.718 Personal history of other venous thrombosis and embolism; Z98.890 Other specified postprocedural states; Z68.21 Body mass index [BMI] 21.0-21.9, adult; Z86.73 Personal history of transient ischemic attack (TIA), and cerebral infarction without residual deficits; Z79.899 Other long term (current) drug therapy
CPT/HCPCS: 36415; 70450; 71045; 80048; 80307; 81001; 82550; 83735; 83880; 84484; 85025; 85610; 85730; 93005; 93880; 96374; 99285; G0378; U0003; G0379

== ENCOUNTER → 2019-12-07 | Outpatient (CLI) | payer MEDICARE ==
[~2019-12-07] MED LIST changes: +LEVE750T41 PO; +OXYC5TAB2 PO; -PANT40TA5 PO; +PANT40TA6 PO; +POTA20TA4 PO; +PREG75CA67 PO; +VENL37.5 PO; +WARF1TAB69 PO
--- NOTE | 2019-12-07 11:55 | RAD ---
CLINICAL HISTORY: Reason: HISTORY OF AAA / Spl. Instructions: / History: COMPARISON: None available. TECHNIQUE: The abdominal aorta was examined from the diaphragm to the proximal common iliac arteries. FINDINGS: The proximal abdominal aorta measures 2.2 cm in AP dimension and 2.4 cm in transverse dimension. The mid abdominal aorta measures 4.1 cm in AP dimension and 3.8 cm in transverse dimension. The distal abdominal aorta measures 2.2 cm in AP dimension and 2.2 cm in transverse dimension. The right common iliac artery measures 1.5 cm x 1.5 cm in diameter. The left common iliac artery measures 1.6 cm x 1.5 cm in diameter. The aorta is tortuous in appearance. IMPRESSION: Abdominal aortic aneurysm measuring up to 4.1 cm. The aorta is tortuous/ectatic appearance. Electronically signed by: Juan Everett MD (12/07/2019 11:52 AM) [id number]
== END | disposition home or self-care (01) ==
LOC: US 08:29
PROVIDERS: ATTEND Specialist
DX: Z00.00 Encounter for general adult medical examination without abnormal findings (principal); I71.4 Abdominal aortic aneurysm, without rupture; Q25.46 Tortuous aortic arch
CPT/HCPCS: 76770

== ENCOUNTER 2020-07-29 12:26 | Observation (INO) | payer MEDICARE ==
[~2020-07-29] VITALS: Ht 188 cm; Wt 76.4 kg
[2020-07-29] VITALS (12 sets, daily range): BP systolic 91–129; BP diastolic 56–79
[~2020-07-29 12:26] MED LIST changes: +TIZA-58 PO; -TIZA2TAB4 PO
[2020-07-29 13:24] LABS: BASO % 0 % (0-3); EOS % 0 % (0-3); HEMATOCRIT 20.7 % (39.0-53.0); LYMPH # 0.9 x10^3/uL (1.0-4.8); LYMPH % 13 % (24-48); MEAN CORPUSCULAR HEMOGLOBIN 30 pg (25-35); MEAN CORPUSCULAR HGB CONC 33 g/dL (31-37); MEAN CORPUSCULAR VOLUME 91 fL (79-100); MONO # 0.5 x10^3/uL (0.0-1.1); MONO % 7 % (0-9); NEUT # 5.5 x10^3uL (1.8-7.7); NEUT % 80 % (31-73); PLATELET COUNT 260 x10^3/uL (140-400); RED BLOOD COUNT 2.27 x10^6/uL (4.30-5.70); RED CELL DISTRIBUTION WIDTH 15.3 % (11.5-14.5); WHITE BLOOD COUNT 6.9 x10^3/uL (4.0-11.0)
[2020-07-29 13:33] LABS: CALCIUM 8.5 mg/dL (8.5-10.1); CREATININE 0.8 mg/dL (0.7-1.3); GFR 94.2; HEMOGLOBIN 6.9 g/dL (13.0-17.5); POTASSIUM 4.9 mmol/L (3.5-5.1)
[2020-07-29 13:40] LABS: ALBUMIN 2.7 g/dL (3.4-5.0); MAGNESIUM 1.9 mg/dL (1.8-2.4); PHOSPHORUS 3.4 mg/dL (2.6-4.7); TOTAL BILIRUBIN 0.1 mg/dL (0.2-1.0); TOTAL PROTEIN 5.5 g/dL (6.4-8.2)
--- NOTE | 2020-07-29 13:55 | RAD ---
CT HEAD INDICATION: Weakness, dizziness COMPARISON: 10/21/2019. Exposure: One or more of the following individualized dose reduction techniques were utilized for thi s examination: 1. Automated exposure control 2. Adjustment of the mA and/or kV according to patient size 3. Use of iterative reconstruction technique TECHNIQUE: 5 mm contiguous axial images were obtained from the skull base to the vertex in both bone and soft tissue algorithm. FINDINGS: Mild bilateral periventricular white matter hypodensities likely chronic small vessel ischemic diseas e. No evidence of acute intracranial hemorrhage. No extra-axial fluid collections. No mass effect or midline shift. Ventricular size is appropriate. Basal cisterns are patent. No fractures identified.Bagley-white differentiation is preserved.Globes and orbits are within normal l imits. Paranasal sinuses and mastoid air cells are clear. IMPRESSION: No acute intracranial findings. Electronically signed by: Ganesh Saenz MD (07/29/2020 1:53 PM) [id number]
--- NOTE | 2020-07-29 13:56 | RAD ---
EXAM: Chest, single view. HISTORY: Weakness and dizziness. COMPARISON: 10/21/2019 FINDINGS: A frontal view of the chest is obtained. There is left basilar atelectasis. There is no con vincing pleural effusion or pneumothorax. There is a stable prominent cardiac silhouette and prominen t aortic arch. There is thoracic spinal fusion instrumentation. IMPRESSION: Suspected left basilar atelectasis. Electronically signed by: Rosa Santoyo MD (07/29/2020 1:54 PM) [place]
--- NOTE | 2020-07-29 14:34 | PHYS DOC ---
Past History Past Medical History: Arthritis, CVA, Diabetes, DVT, GERD, Hypothyroid, Seizure, TIA, Other Additional Past Medical Histor: chronic back pain (MARQUIS RETANA APRN) Past Surgical History: Other Additional Past Surgical Histo: nose surgery, back surgery (MARQUIS RETANA APRN) Alcohol Use: None Drug Use: None (MARQUIS RETANA APRN) Adult General Chief Complaint Chief Complaint: DIZZY/LIGHT HEADED HPI HPI Patient is a 75-year-old male who presents emergency department complaining of feeling weak tired and dizzy since 11 AM yesterday. Patient states he went to see his primary care physician Dr. Scott who was concerned that his hemoglobin may be low. Patient reports it is hard for him to stay awake. Patient states he usually stays in bed because it is hard to sit in his wheelchair and move around related to back pain. Patient reports he had back surgery that required rods in his spine in the . Patient states he used to walk with a walker but became wheelchair-bound and 2014. Patient states he had no improvement with physical therapy. Patient denies any fever or chills, headaches, chest pain, abdominal pain. Patient denies shortness of breath chest or nasal congestion. Patient denies any pain to his extremities. Patient states he does have back pain but this is chronic pain and has no changes related to his back pain. Patient reports he was started on seizure medications in 2014, has not had a seizure in 5 years. Patient reports he takes Keppra for this. Patient reports he lives by himself, his sister visits him daily. Patient's sister is at bedside currently. Patient states he has had both Covid vaccine vaccinations which he completed on June 232020, patient states he takes a yearly flu shot, patient states he has had Prevnar pneumococcal vaccine and Pneumovax pneumococcal vaccine. Patient denies any other physical concerns or physical complaints. Patient has a past medical history of hypokalemia, stage I pressure ulcer on buttocks, prostate neoplasm malignant, coagulation defects, wheelchair dependence, dry eye syndrome, severity dermatitis (MARQUIS RETANA APRN) Review of Systems Review of Systems 14 body systems of review of systems have been reviewed. See HPI for pertinent positives and negative responses, otherwise all other systems are negative, nonpertinent or noncontributory. (MARQUSI RETANA APRN) Allergies Allergies Allergies Coded Allergies Type Severity Reaction Last Updated Verified I S O L A T I O N *CONTACT* Allergy Unknown 02/24/15 Yes NKMA Allergy Unknown 02/24/15 Yes (MARQUIS RETANA APRN) Physical Exam Physical Exam Constitutional: Well developed, well nourished, no acute distress, non-toxic appearance. 75-year-old male, appears pale, otherwise nontoxic in appearance, no acute distress. HENT: Normocephalic, atraumatic, bilateral external ears normal, oropharynx moist, no oral exudates, nose normal. Oral mucosa pale, no infectious process appreciated of the oropharynx. Eyes: PERRLA, EOMI, conjunctiva pale in appearance, no discharge. Neck: Normal range of motion, no tenderness, supple, no stridor. Cardiovascular:Heart rate regular rhythm, no murmur, heart sounds S1-S2 to auscultation. Lungs & Thorax: Bilateral breath sounds clear to auscultation no adventitious lung sounds appreciated. Abdomen: Bowel sounds normal, soft, no tenderness, no masses, no pulsatile masses. Skin: Warm, dry, no erythema, no rash. Except for sacral area stage I pressure ulcer. Patient does wear adult briefs. Back: No tenderness, no CVA tenderness. Extremities: No tenderness, no cyanosis, no clubbing, ROM limited related to chronic pain, no edema. Neurologic: Alert and oriented X 3, normal motor function, normal sensory function, no focal deficits noted. Psychologic: Affect normal, judgement normal, mood normal. (MARQUIS RETANA APRN) Current Patient Data Vital Signs Vital Signs Date Time Temp Pulse Resp B/P (MAP) Pulse Ox O2 Delivery O2 Flow Rate FiO2 07/29/20 14:04 52 16 89/52 (64) 98 Room Air 07/29/20 12:31 97.9 Lab Results Laboratory Tests Test 07/29/20 12:57 White Blood Count 6.9 x10^3/uL (4.0-11.0) Red Blood Count 2.27 x10^6/uL (4.30-5.70) L Hemoglobin 6.9 g/dL (13.0-17.5) *L Hematocrit 20.7 % (39.0-53.0) L Mean Corpuscular Volume 91 fL (79-100) Mean Corpuscular Hemoglobin 30 pg (25-35) Mean Corpuscular Hemoglobin Concent 33 g/dL (31-37) Red Cell Distribution Width 15.3 % (11.5-14.5) H Platelet Count 260 x10^3/uL (140-400) Neutrophils (%) (Auto) 80 % (31-73) H Lymphocytes (%) (Auto) 13 % (24-48) L Monocytes (%) (Auto) 7 % (0-9) Eosinophils (%) (Auto) 0 % (0-3) Basophils (%) (Auto) 0 % (0-3) Neutrophils # (Auto) 5.5 x10^3uL (1.8-7.7) Lymphocytes # (Auto) 0.9 x10^3/uL (1.0-4.8) L Monocytes # (Auto) 0.5 x10^3/uL (0.0-1.1) Eosinophils # (Auto) 0.0 x10^3/uL (0.0-0.7) Basophils # (Auto) 0.0 x10^3/uL (0.0-0.2) Sodium Level 132 mmol/L (136-145) L Potassium Level 4.9 mmol/L (3.5-5.1) Chloride Level 99 mmol/L (98-107) Carbon Dioxide Level 27 mmol/L (21-32) Anion Gap 6 (6-14) Blood Urea Nitrogen 36 mg/dL (8-26) H Creatinine 0.8 mg/dL (0.7-1.3) Estimated GFR (Cockcroft-Gault) 94.2 BUN/Creatinine Ratio 45 (6-20) H Glucose Level 148 mg/dL (70-99) H Calcium Level 8.5 mg/dL (8.5-10.1) Phosphorus Level 3.4 mg/dL (2.6-4.7) Magnesium Level 1.9 mg/dL (1.8-2.4) Total Bilirubin 0.1 mg/dL (0.2-1.0) L Aspartate Amino Transferase (AST) 21 U/L (15-37) Alanine Aminotransferase (ALT) 20 U/L (16-63) Alkaline Phosphatase 59 U/L (46-116) Troponin I Quantitative 0.063 ng/mL (0-0.055) H Total Protein 5.5 g/dL (6.4-8.2) L Albumin 2.7 g/dL (3.4-5.0) L Albumin/Globulin Ratio 1.0 (1.0-1.7) (MARQUIS RETANA APRN) EKG EKG EKG performed at 1318 by house respiratory therapy staff shows a normal sinus rhythm without ectopy heart rate 66 bpm, RI interval 0.222, QTc interval 0.373, no acute STEMI, no ACS, no acute ischemia appreciated. (MARQUIS RETANA APRN) Radiology/Procedures Radiology/Procedures PATIENT: EBER MACHADO ACCOUNT: [id number] : 1945 LOCATION: ER AGE: 75 SEX: M EXAM STATUS: REG ER ORD. PHYSICIAN: MARQUIS RETANA APRN REASON: WEAKNESS, DIZZY PROCEDURE: CT HEAD WO CONTRAST CT HEAD INDICATION: Weakness, dizziness COMPARISON: 10/21/2019. Exposure: One or more of the following individualized dose reduction techniques were utilized for this examination: 1. Automated exposure control 2. Adjustment of the mA and/or kV according to patient size 3. Use of iterative reconstruction technique TECHNIQUE: 5 mm contiguous axial images were obtained from the skull base to the vertex in both bone and soft tissue algorithm. FINDINGS: Mild bilateral periventricular white matter hypodensities likely chronic small vessel ischemic disease. No evidence of acute intracranial hemorrhage. No extra-axial fluid collections. No mass effect or midline shift. Ventricular size is appropriate. Basal cisterns are patent. No fractures identified.Bagley-white differentiation is preserved.Globes and orbits are within normal limits. Paranasal sinuses and mastoid air cells are clear. IMPRESSION: No acute intracranial findings. Electronically signed by: Ganesh Saenz MD (07/29/2020 1:53 PM) [id number] DICTATED AND SIGNED BY: GANESH SAENZ MD DATE: 07/29/20 1349 CC: MARQUIS RETANA APRN; EMERGENCY,DEPARTMENT; CIARA SCOTT MD ~MTH0 0 PATIENT: EBER MACHADO ACCOUNT: [id number] : 1945 LOCATION: ER AGE: 75 SEX: M EXAM STATUS: REG ER ORD. PHYSICIAN: MARQUIS RETANA APRN REASON: WEAKNESS, DIZZINESS PROCEDURE: PORTABLE CHEST 1V EXAM: Chest, single view. HISTORY: Weakness and dizziness. COMPARISON: 10/21/2019 FINDINGS: A frontal view of the chest is obtained. There is left basilar atelectasis. There is no convincing pleural effusion or pneumothorax. There is a stable prominent cardiac silhouette and prominent aortic arch. There is thoracic spinal fusion instrumentation. IMPRESSION: Suspected left basilar atelectasis. Electronically signed by: Rosa Simpson MD (07/29/2020 1:54 PM) [facility] DICTATED AND SIGNED BY: ROSA SIMPSON MD DATE: 07/29/20 135 CC: MARQUIS RETANA APRN; EMERGENCY,DEPARTMENT; CIARA SCOTT MD ~MTH0 0 (MARQUIS RETANA APRN) Heart Score C/O Chest Pain: No Risk Factors: Risk Factors: DM, Current or recent (<one month) smoker, HTN, HLP, family history of CAD, obesity. Risk Scores: Risk Factors: DM, Current or recent (<one month) smoker, HTN, HLP, family h istory of CAD, obesity. (MARQUIS RETANA APRN) Course & Med Decision Making Course & Med Decision Making Pertinent Labs and Imaging studies reviewed. (See chart for details) 75-year-old male, vital signs reviewed, presents emergency department from his primary care physician's office for concerns of weakness, feeling tired, and low hemoglobin and primary care physician's office. Physical examination concerning for anemia. Patient does have history of abdominal aortic aneurysm, measured 4.1 cm on 12/07/[address] evaluation. Patient does not have any abdominal pains or discomfort at this time. Patient denies any pain or discomfort physically. Will order EKG, troponin I, CBC, CMP, mag, phosphorus, Keppra level, CT head, and chest x-ray. Lab called critical result of hemoglobin 6.9. Also called critical result of troponin I 0.063. Patient continues to deny chest pain or shortness of breath. Will order type and cross. Discussed with patient findings of hemoglobin low at 6.9, discussed with patient need for blood transfusion, risk and benefits of blood transfusions, patient gave verbal consent for receiving blood products. Discussed with patient admission to the hospital for anemia. Patient is amenable to this plan. Bedside rectal exam for fecal occult blood study performed, patient tolerated well, soft stool in rectal vault dark brown in color. No blood around rectum or on stool appreciated. Reviewed and discussed patient case with inpatient management physician Dr. Smith who recommended admission to [facility] as observation status for anemia, Dr. Smith requested H&H in a.m., reviewed elevated troponin I of 0.063, Dr. Smith did not recommend ordering any further study or ongoing serial troponin I levels. Dr. Smith concerned patient may need inpatient GI consult, reviewed Dr. Smith's concerns with patient, patient states he would accept observation admission to [facility] for blood transfusion and wants to follow-up with GI if on outpatient basis. Dr. Smith has assumed patient care at this time. Patient's fecal occult blood study pending at time of admission. (MARQUIS RETANA APRN) Dragon Disclaimer Dragon Disclaimer This electronic medical record was generated, in whole or in part, using a voice recognition dictation system. (MARQUIS RETANA APRN) Attending Co-Sign The patient was seen and interviewed as well as examined at the bedside. The chart was reviewed. The case was discussed. Agree with the plan of care. (RIAN ESPINOSA DO) Departure Departure: Impression: Primary Impression: Anemia Additional Impression: Elevated troponin I level Disposition: ADMITTED INPATIENT (Admit observation status to [facility] unit to inpatient management physician Dr. Steve Smith) Admitting Physician: Steve Smith (MARQUIS RETANA APRN) Referrals: CIARA SCOTT MD (PCP) Problem Qualifiers Primary Impression: Anemia Anemia type: unspecified type Qualified Codes: D64.9 - Anemia, unspecified MARQUIS RETANA APRN July 29, 2020 14:34 RIAN ESPINOSA DO July 30, 2020 06:08
[2020-07-29] MEDS ORDERED: oxyCODONE IR 5 MG TABLET PO PRN (15:00)
[2020-07-29] MEDS ORDERED: ACETAMINOPHEN 500 MG TABLET PO ONE (15:00)
[2020-07-29 16:27] LABS: FECAL OB PT POSITIVE (NEG)
--- NOTE | 2020-07-29 17:50 | NUR ---
Patient arrived to the unit via EMS. Patient is alert and oriented. Patient was oriented to unit routines. Patient is requiring transfusion of PRBC. Blood bank called to notify that the blood is ready. Patient has never has a blood transfusion before therefore this RN discussed possible reactions with patient. Patients sister Amanda is present at time of arrival and providing patient health history. Patient is a poor historian. Patient is currently in bed with side rails up X's 2, with call light in reach. WCTM.
[2020-07-29] MEDS ORDERED: CARB15DR65 EACHEYE (18:34)
[2020-07-29] MEDS ORDERED: MELA3TAB43 PO (18:34)
[2020-07-29] MEDS ORDERED: POLY15DR27 EACHEYE (18:34)
--- NOTE | 2020-07-29 19:43 | EKG ---
[address] [address] Test Date: 2020-07-29 Test Time: 13:18:58 Pat Name: EBER MACHADO Department: Room: Gender: M Float Remover: [facility] : 1945 Requested By: MARQUIS RETANA Order Number: [id number] Reading MD: Measurements Intervals [place] Rate: 66 P: 33 RI: 222 QRS: 40 QRSD: 74 T: 50 QT: 354 QTc: 373 Interpretive Statements SINUS RHYTHM PROLONGED RI INTERVAL T ABNORMALITY IN ANTEROLATERAL LEADS ABNORMAL ECG RI6.02 No previous ECG available for comparison
[2020-07-29] MEDS ORDERED: traZODone 100 MG TABLET. PO PRN (19:45)
[2020-07-29] MEDS ORDERED: ACETAMINOPHEN 325 MG TABLET PO PRN (19:45)
--- NOTE | 2020-07-29 19:53 | NUR ---
Blood transfusion started at 1808. Tubing primed with normal saline and then primed with blood. Transfusion started at 75 mls/hr patient monitored closely x 15 mins. No reaction noted, transfusion increased to 125 mls/hr no reaction noted.
[2020-07-29] MEDS: oxyCODONE IR 5 MG TABLET PO PRN (19:54)
[2020-07-29] MEDS: PREGABALIN 75 MG CAPSULE PO SCH (20:47)
[2020-07-29] MEDS: GABAPENTIN 300 MG CAPSULE. PO SCH (20:47)
[2020-07-29] MEDS: POTASSIUM CHLORIDE 20 MEQ TABLET.ER. PO SCH (20:47)
[2020-07-29] MEDS: levETIRAcetam 500 MG TABLET PO SCH (20:48)
[2020-07-29] MEDS: POLYVINYL ALCOHOL/POVIDONE/PF OPHTH SOLUTION DROPERETTE. OU SCH (20:48)
[2020-07-29] MEDS ORDERED: CARBOXYMETHYLCELLULOSE SODIUM EACHEYE SCH (21:00)
[2020-07-29] MEDS ORDERED: NON FORMULARY ITEM (Venlafaxine Hcl (Effexor Xr) 75 MG) PO SCH (21:00)
[2020-07-29] MEDS ORDERED: MELATONIN 3 MG TABLET PO SCH (21:00)
[2020-07-29] MEDS ORDERED: VENLAFAXINE XR 37.5 MG CAP.ER.24H. PO SCH (21:00)
--- NOTE | 2020-07-29 21:40 | NUR ---
Pt is sleeping one hour after blood transfusion. Pt's VSS and recorded.
[2020-07-30 05:26] LABS: HEMATOCRIT 21.5 % (39.0-53.0); HEMOGLOBIN 7.2 g/dL (13.0-17.5); RED BLOOD COUNT 2.39 x10^6/uL (4.30-5.70); RED CELL DISTRIBUTION WIDTH 14.9 % (11.5-14.5); WHITE BLOOD COUNT 5.7 x10^3/uL (4.0-11.0)
[2020-07-30 05:35] VITALS: BP 101/65
[2020-07-30] MEDS: oxyCODONE IR 5 MG TABLET PO PRN (05:37)
[2020-07-30] MEDS ORDERED: LEVOTHYROXINE 75 MCG TABLET PO SCH (07:30)
[2020-07-30] MEDS: POTASSIUM CHLORIDE 20 MEQ TABLET.ER. PO SCH (08:09)
[2020-07-30] MEDS: levETIRAcetam 500 MG TABLET PO SCH (08:09)
[2020-07-30] MEDS: POLYVINYL ALCOHOL/POVIDONE/PF OPHTH SOLUTION DROPERETTE. OU SCH (08:09)
[2020-07-30] MEDS: PREGABALIN 75 MG CAPSULE PO SCH (08:10)
[2020-07-30] MEDS: GABAPENTIN 300 MG CAPSULE. PO SCH (08:10)
--- NOTE | 2020-07-30 10:24 | NUR ---
Patient discharged from ICU via wheelchair. All patient belongings left with patient. Patient education given, transported to [facility] and departed hospital. Patient stable upon discharge.
--- NOTE | 2020-07-30 10:40 | HP ---
ATTENDING PHYSICIAN: Dr. Smith CHIEF COMPLAINT: Weakness and anemia. HISTORY OF PRESENT ILLNESS: The patient is a 75-year-old gentleman who has chronic multiple issues. He was weak and dizzy. He went to Dr. Scott's office. Hemoglobin there was recorded below. He was sent here for repeat, it was 6.9 g/dL. Indices were normal suggesting this is fairly acute. He had guaiac positive stools. In taking the history, I also found out he was taking [id number] ibuprofen for arthritis in addition to other pain meds. He denied any chest pain or palpitations. He was admitted then for transfusion of packed red cells to increase oxygen carrying capacity and to monitor his blood counts. PAST MEDICAL HISTORY: Significant for generalized debilitation, degenerative arthritis, idiopathic seizure disorder, TIA, history of DVT, diabetes and hypothyroidism. He is not on any anticoagulation. ALLERGIES: No new prescription allergies. CURRENT MEDICATIONS: At home reviewed. He was taking Tylenol, methylcellulose, Neurontin, Keppra, Synthroid, melatonin, oxycodone, MiraLax, Lyrica, trazodone and Effexor. SOCIAL HISTORY: He is a nonsmoker, nondrinker. FAMILY HISTORY: Noncontributory. SOCIAL HISTORY: He lives alone. He has a sister in town. He had the ____ groceries as he does not drive a car. REVIEW OF SYSTEMS: Significant for the multiple medical issues. He is bedridden. He is fairly alert. He does not want to go any higher level of care. All other systems reviewed and turned to be negative. PHYSICAL EXAMINATION: GENERAL: When I saw him, this is a pleasant elderly gentleman who is very pale. He appears older than stated age. VITAL SIGNS: Initial showed a blood pressure of 106/58, pulse 64 and regular. He was afebrile. Oxygen saturation 96% on room air. HEENT: Head is without trauma. Pupils are reactive. Sclerae nonicteric. Oropharynx clear. NECK: Supple, no bruits. LUNGS: Clear. CARDIOVASCULAR: Regular heart tones. ABDOMEN: Soft. No guarding or rebound tenderness. EXTREMITIES: Show no cyanosis or edema. NEUROLOGIC: Function focally intact. SKIN: Warm and dry, but pale. PERTINENT LABORATORY STUDIES: Hemoglobin 6.9 g/dL with a white count of 6900. Chemistry panel unremarkable. Creatinine is 0.8 mg percent. Cardiac enzyme, troponin was 0.06. ASSESSMENT: 1. A 75-year-old gentleman with symptomatic anemia. 2. Probable nonsteroidal anti-inflammatory drug gastritis. 3. Generalized debilitation, is bedridden. 4. Old cerebrovascular accident. 5. Chronic pain syndrome. 6. Gastroesophageal reflux disease. 7. Hyperlipidemia. PLAN: 1. Admit to the hospital. 2. Transfusion of 1 unit packed red cells to increase oxygen carrying capacity in symptomatic patient. Please note the guidelines were changed for transfusion orders. 3. Follow up hemoglobin in the morning. 4. Continue home meds. 5. We guaiac the stools, is indeed positive. I have asked him to stop his nonsteroidal agent. 6. I offered endoscopy to be scheduled, he declined at this time. LATONIA/BETY/BOBBY DR: LATONIA/ramin TID: [id number] CC: CIARA SCOTT MD
--- NOTE | 2020-07-30 14:22 | DS ---
ATTENDING PHYSICIAN: Dr. Smith. FINAL DISCHARGE DIAGNOSES: 1. Symptomatic anemia. 2. Generalized debilitation. 3. Degenerative arthritis. 4. Elevation slight, of troponin due to stress demand ischemia. 5. Generalized debilitation. 6. End-stage gastritis. HISTORY OF PRESENT ILLNESS: The patient is a pleasant 75-year-old gentleman with multiple medical issues. He is nonambulatory. He has been taking ibuprofen over the counter in addition to his pain meds. He did have guaiac positive stools. We offered endoscopy this time, he declined. He was admitted with symptomatic anemia with hemoglobin 6.9 grams and transfusion to increase oxygen carrying capacity. PHYSICAL EXAMINATION: Please see the dictated note. PERTINENT LABORATORY AND X-RAY STUDIES: Hemoglobin 6.9 grams, transfused, it may have been early before equilibration, it was only 7.2 grams next day. The troponin was measured at 0.06. Electrolytes within normal range. We feel that the troponin level slight elevation was due to stress demand ischemia. He had no symptoms, no EKG changes or clinical symptoms of coronary ischemia at this time. COURSE IN HOSPITAL: The patient was typed and crossed for one unit of packed red cells to increase oxygen carrying capacity. Repeat hemoglobin was up to 7.2 grams next day. He was feeling better. At this time criteria for further transfusion is limited by the new guidelines. Therefore, he is discharged home the next day with no changes on his home meds. Strong encouragement to avoid further nonsteroidal anti-inflammatory drug use. Other home meds are unchanged. They include the following: He should continue his Tylenol, Neurontin, Keppra, Synthroid, melatonin, oxycodone p.r.n., potassium, Lyrica, trazodone and Effexor doses unchanged. He will follow up with Dr. Scott. I suggested another CBC in 10 days' time to see if his blood counts stayed up. He was discharged then from our hospital in stable condition with explicit drug and followup care. HUMBLE DR: Sharon TID: [id number] CC: CIARA SCOTT MD
== END 2020-07-30 10:34 | disposition home or self-care (01) ==
LOC: ER 12:26 → 1 SOUTH 15:03 → ICU 16:50
PROVIDERS: ADMIT Hospitalist; ATTEND Hospitalist
DX: D64.9 Anemia, unspecified (principal); R53.81 Other malaise; G89.4 Chronic pain syndrome; M19.90 Unspecified osteoarthritis, unspecified site; K21.9 Gastro-esophageal reflux disease without esophagitis; E78.5 Hyperlipidemia, unspecified; E03.9 Hypothyroidism, unspecified; R77.8 Other specified abnormalities of plasma proteins; E11.9 Type 2 diabetes mellitus without complications; G40.909 Epilepsy, unspecified, not intractable, without status epilepticus; K29.60 Other gastritis without bleeding; K29.70 Gastritis, unspecified, without bleeding; Z86.718 Personal history of other venous thrombosis and embolism; Z86.73 Personal history of transient ischemic attack (TIA), and cerebral infarction without residual deficits; Z99.3 Dependence on wheelchair
CPT/HCPCS: 36415; 36430; 70450; 71045; 80053; 80177; 82274; 83735; 84100; 84484; 85025; 85027; 85610; 85730; 86850; 86900; 86901; 86920; 93005; 99285; G0378; P9016; G0379

== ENCOUNTER → 2020-12-14 | Outpatient (CLI) | payer MEDICARE ==
[~2020-12-14] MED LIST changes: +CARB15DR65 EACHEYE; +MELA3TAB43 PO; +POLY15DR27 EACHEYE; +POTA-121 PO; -POTA20TA4 PO
--- NOTE | 2020-12-14 10:37 | RAD ---
CLINICAL HISTORY: Abdominal aortic aneurysm. Follow-up examination. COMPARISON: 12/07/2019. TECHNIQUE: The abdominal aorta was examined from the diaphragm to the proximal common iliac arteries. FINDINGS: Tortuous abdominal aorta with atherosclerotic plaques. The proximal abdominal aorta is not visualized. The mid abdominal aorta measures 2.6 x 2.7 cm. PSV: 89 cm/s. The distal abdominal aorta measures 4.1 x 4.3 cm, previously 4.1 x 3.8 cm (AP x T). PSV: 55 cm/s. The right common iliac artery measures 1.5 x 1.5 cm. PSV: 83 cm/s. The left common iliac artery nguyễn ures 1.4 x 1.6 cm. PSV: 59 cm/s. IMPRESSION: Infrarenal abdominal aortic aneurysm measures 4.1 x 4.3 cm, previously 4.1 x 3.8 cm. Abdominal aortic aneurysm measuring 4.0-4.4 cm as above. Recommend follow-up ultrasound or CTA in 1 year per ACR and SVS recommendations. Electronically signed by: Vashti García MD (12/14/2020 10:35 AM) [id number]
== END ==
LOC: US 07:36
PROVIDERS: ATTEND Specialist
DX: I71.4 Abdominal aortic aneurysm, without rupture (principal); Q25.46 Tortuous aortic arch
CPT/HCPCS: 76770